=== PATIENT | male | born 1940 | race Caucasian/White ===

== ENCOUNTER 2019-09-22 16:23 | Inpatient (IN) | payer OTHER ==
[2019-09-22 17:33] LABS: Urine Blood 3+ (NEG); Urine Glucose NEGATIVE (NEG); Urine Protein NEGATIVE (NEG); Urine Specific Gravity 1.015 (1.005-1.030); Urine pH 5.5 (5.0-7.0)
[2019-09-22] MEDS ORDERED: NA CHLORIDE 0.9% 500 ML ONE (17:47)
[2019-09-22 17:58] LABS: Basophils % 0.4 % (0-1.3); Lymphocytes % 9.3 % (15.3-44.8); MPV 8.3 fL (7.6-11.3); RBC Red Blood Cell Count 5.61 M/uL (4.33-5.43)
[2019-09-22 18:07] LABS: Potassium 4.2 mmol/L (3.5-5.1)
--- NOTE | 2019-09-22 19:11 | RAD REPORT ---
EXAM DESCRIPTION: CT - Abdomen Pelvis Wo Contrast - 09/22/2019 6:21 pm CLINICAL HISTORY: ABDOMINAL DISTENTION COMPARISON: CT ABD PELVIS W CONTRAST dated 06/20/2015; CT ABD PELVIS W CONTRAST dated 01/04/2013 TECHNIQUE: Axial [address] imaging of the abdomen and pelvis was performed without IV contrast. No IV contrast was given because of allergy, abnormal renal function, patient refusal or physician re quest. No oral contrast administered. All CT scans are performed using dose optimization technique as appropriate and may include automated exposure control or mA/KV adjustment according to patient size. FINDINGS: Scarring or atelectasis at each base. No pericardial thickening or effusion. The liver, spleen and pancreas show no suspicious findings on non-contrast imaging. Renal parenchymal calcifications are present. Cholecystectomy clips are present. Biliary tree is not dilated. Bilateral moderate severity hydronephrosis of the pelvis and calices noted down to the UVJ level. No obstructing calculi. Bladder wall is only partially filled. Bladder wall thickening is present. Any e tiology for the hydronephrosis is not definitive. This may be from a urethral stricture. The bladder was not dilated but patient may have undergone a catheterization. No indwelling catheter. Bilateral p erinephric stranding is present. No significant adrenal finding. Isodense renal masses and pyeloneph ritis cannot be excluded in the absence of IV contrast. No dilated bowel loops or bowel wall thickening. A few prominent small bowel loops are present. This is nonspecific. This could be enteritis or mild ileus. No free air or pneumatosis. No hernia, mass or bulky lymphadenopathy. No suspicious bony findings. IMPRESSION: Moderate severity bilateral hydronephrosis and hydroureter down to the UVJ level. No obs tructing calculi seen. Patient may have a urethral stricture. Prostate gland is lobulated. Urinary bladder wall is thickened and slightly irregular. This may be secondary to chronic outlet obs truction. Bladder volume is relatively low at this time and patient may have undergone catheterizatio n. No obstruction, free air or surgically emergent finding. Prominent small bowel loops could indicate n onspecific enteritis or mild ileus. Full assessment is limited is the absence of IV contrast.
--- NOTE | 2019-09-22 20:39 | ER ---
Nurse's Notes [facility] Name: Kenji Hunt Age: 79 yrs Sex: Male : 1940 Arrival Date: 09/22/2019 Time: 16:26 Bed 16 Private MD: Diagnosis: Acute kidney failure Presentation: 09/21 16:31 Chief complaint: Patient states: Constipation x 3 days and urinary frequency x 1 week. ss Coronavirus screen: The patient has NOT traveled to a country currently being monitored by the [facility] within the last 14 days. Proceed with normal triage procedures. Ebola Screen: Patient denies exposure to infectious person. Patient denies travel to an Ebola-affected area in the 21 days before illness onset. Initial Sepsis Screen: Does the patient meet any 2 criteria? No. Patient's initial sepsis screen is negative. Does the patient have a suspected source of infection? No. Patient's initial sepsis screen is negative. Risk Assessment: Do you want to hurt yourself or someone else? Patient reports no desire to harm self or others. 16:31 Method Of Arrival: Ambulatory ss 16:31 Acuity: OZZIE 3 ss Historical: - Allergies: 16:35 No Known Allergies; ss - PSHx: 22:27 Cholecystectomy; aa1 - Immunization history:: Adult Immunizations up to date. - Social history:: Smoking status: Patient denies any tobacco usage or history of. Screenin:20 Abuse screen: Denies threats or abuse. Denies injuries from another. Nutritional ca1 screening: No deficits noted. Tuberculosis screening: No symptoms or risk factors identified. Fall Risk IV access (20 points). Assessment: 17:20 General: Appears in no apparent distress. comfortable, Behavior is calm, cooperative, ca1 appropriate for age. Pain: Complains of pain in suprapubic area Pain does not radiate. Pain currently is 6 out of 10 on a pain scale. Pain began a week ago. Neuro: Level of Consciousness is awake, alert, obeys commands, Oriented to person, place, time, situation, Appropriate for age. Cardiovascular: Heart tones S1 S2 present Capillary refill < 3 seconds Patient's skin is warm and dry. Respiratory: Airway is patent Respiratory effort is even, unlabored, Respiratory pattern is regular, symmetrical, Breath sounds are clear bilaterally. GI: Abdomen is round distended, Bowel sounds present X 4 quads. Abd is soft and non tender X 4 quads. : Urine is clear. EENT: No signs and/or symptoms were reported regarding the EENT system. Derm: Skin is intact, is healthy with good turgor, Skin is pink, warm \T\ dry. Musculoskeletal: Circulation, motion, and sensation intact. Capillary refill < 3 seconds. 17:42 Reassessment: Bladder scanned 695ml. Notified provider. ca1 18:28 Reassessment: Patient appears in no apparent distress at this time. Patient and/or ca1 family updated on plan of care and expected duration. Pain level reassessed. Patient is alert, oriented x 3, equal unlabored respirations, skin warm/dry/pink. 19:50 Reassessment: Patient appears in no apparent distress at this time. Patient and/or aa1 family updated on plan of care and expected duration. Pain level reassessed. Patient is alert, oriented x 3, equal unlabored respirations, skin warm/dry/pink. Provider at bedside for reassessment. 21:00 Reassessment: Patient appears in no apparent distress at this time. Patient and/or aa1 family updated on plan of care and expected duration. Pain level reassessed. Patient is alert, oriented x 3, equal unlabored respirations, skin warm/dry/pink. Awaiting bed assignment. 22:00 Reassessment: Patient appears in no apparent distress at this time. Patient and/or aa1 family updated on plan of care and expected duration. Pain level reassessed. Patient is alert, oriented x 3, equal unlabored respirations, skin warm/dry/pink. Attempted to call report; nurse will calll back. 22:28 Reassessment: Patient appears in no apparent distress at this time. Patient is alert, aa1 oriented x 3, equal unlabored respirations, skin warm/dry/pink. Report given to SASHA Johnston on 2nd floor. 22:53 Reassessment: Patient appears in no apparent distress at this time. Patient is alert, aa1 oriented x 3, equal unlabored respirations, skin warm/dry/pink. Pt admitted to room 210 at this time. Vital Signs: 16:31 BP 181 / 82; Pulse 84; Resp 17; Temp 98.8(TE); Pulse Ox 98% on R/A; Weight 81.65 kg; ss Height 5 ft. 8 in. (172.72 cm); 19:50 BP 142 / 69; Pulse 84; Resp 18; Pulse Ox 97% on R/A; Pain 0/10; aa1 21:45 BP 137 / 56; Pulse 76; Resp 18; Temp 98.6; Pulse Ox 99% on R/A; Pain 0/10; aa1 16:31 Body Mass Index 27.37 (81.65 kg, 172.72 cm) ED Course: 16:26 Patient arrived in ED. mr 16:35 Triage completed. ss 16:35 Arm band placed on left wrist. ss 17:07 Hammad Ramirez FNP-C is PHCP. la1 17:07 Paco Dobbins MD is Attending Physician. la1 17:10 Maryjo Abreu, SASHA is Primary Nurse. ca1 17:20 Patient has correct armband on for positive identification. Bed in low position. Call ca1 light in reach. Side rails up X 1. Pulse ox on. NIBP on. Warm blanket given. 17:42 Initial lab(s) drawn, by me, sent to lab. Inserted saline lock: 20 gauge in left ca1 antecubital area, using aseptic technique. Blood collected. 17:50 No provider procedures requiring assistance completed. Straight cath inserted, using ca1 sterile technique, 16 Fr. Specimen obtained. Returned clear yellow urine. Patient tolerated. 18:07 Radiology exam delayed due to lab results not completed at this time. (BUN/Creatinine). nj 18:21 Abdomen In Process Unspecified. EDMS 18:58 Woody cath inserted, using sterile technique, 16 Fr., by me, balloon inflated, to ca1 gravity drainage, returned emani urine. Patient tolerated well. 20:37 Steven Mccormick MD is Hospitalizing Provider. la1 22:29 Patient admitted, IV remains in place. aa1 Administered Medications: 17:43 Drug: NS 0.9% 500 ml Route: IV; Rate: bolus; Site: left antecubital; ca1 19:00 Follow up: IV Status: Completed infusion; IV Intake: 500ml aa1 Intake: 19:00 IV: 500ml; Total: 500ml. aa1 Output: 18:28 Urine: 800ml (Woody); Total: 800ml. ca1 20:42 Urine: 1500ml (Woody); Total: 2300ml. aa1 22:58 Urine: 1450ml (Woody); Total: 3750ml. aa1 Outcome: 20:38 Decision to Hospitalize by Provider. la1 22:53 Admitted to Med/surg accompanied by tech, via wheelchair, room 210, with chart, Report aa1 called to SASHA Johnston 22:53 Condition: stable 22:53 Discharge instructions given to patient, family, Instructed on the need for admit, Demonstrated understanding of instructions. 23:02 Patient left the ED. aa1 Signatures: Dispatcher [employer] EDMS Gwendolyn Castañeda RN RN aa1 MarAnjana nevarez mr WongLinda RN RN ss Hammad Ramirez, MANAGER DIVISION-C MANAGER DIVISION-Cla1 Logan Heredia Cheryl RN RN ca1 Corrections: (The following items were deleted from the chart) 22:29 22:28 Reassessment: Patient appears in no apparent distress at this time. Patient aa1 and/or family updated on plan of care and expected duration. Pain level reassessed. Patient is alert, oriented x 3, equal unlabored respirations, skin warm/dry/pink. Attempted to call report; nurse will calll back aa1
--- NOTE | 2019-09-22 20:39 | EDPHYS ---
Physician Documentation [facility] Name: Kenji Hunt Age: 79 yrs Sex: Male : 1940 Arrival Date: 09/22/2019 Time: 16:26 Bed 16 Private MD: ED Physician Paco Dobbins HPI: 09/21 20:39 This 79 yrs old Male presents to ER via Ambulatory with complaints of Urinary la1 Problem. 20:39 The patient presents with abdominal distention. Onset: The symptoms/episode la1 began/occurred 1 week(s) ago. The symptoms do not radiate. Associated signs and symptoms: none. The symptoms are described as achy. Modifying factors: The symptoms are alleviated by nothing, the symptoms are aggravated by nothing. Severity of pain: At its worst the pain was moderate. pt reports urinary frequency with small amounts for the last week. Historical: - Allergies: 16:35 No Known Allergies; ss - PSHx: 22:27 Cholecystectomy; aa1 - Immunization history:: Adult Immunizations up to date. - Social history:: Smoking status: Patient denies any tobacco usage or history of. ROS: 20:40 Constitutional: Negative for fever, chills, and weight loss, Eyes: Negative for injury, la1 pain, redness, and discharge, ENT: Negative for injury, pain, and discharge, Neck: Negative for injury, pain, and swelling, Cardiovascular: Negative for chest pain, palpitations, and edema, Respiratory: Negative for shortness of breath, cough, wheezing, and pleuritic chest pain, Back: Negative for injury and pain, MS/Extremity: Negative for injury and deformity. 20:40 Skin: Negative for injury, rash, and discoloration, Neuro: Negative for headache, weakness, numbness, tingling, and seizure. 20:40 Abdomen/GI: Positive for abdominal pain. 20:40 : Positive for urinary frequency, small amounts, hematuria. Exam: 20:41 Constitutional: This is a well developed, well nourished patient who is awake, alert, la1 and in no acute distress. Head/Face: Normocephalic, atraumatic. Eyes: Pupils equal round and reactive to light, extra-ocular motions intact. ENT: Mucous membranes moist. Neck: Trachea midline, Chest/axilla: Normal chest wall appearance and motion. Nontender with no deformity. No lesions are appreciated. Cardiovascular: Regular rate and rhythm with a normal S1 and S2. No gallops, murmurs, or rubs. Normal PMI, no JVD. No pulse deficits. Respiratory: Lungs have equal breath sounds bilaterally, Abdomen/GI: Soft, non-tender, with normal bowel sounds. mild distension. No guarding or rebound. No evidence of tenderness throughout. Skin: Warm, dry with normal turgor. Normal color with no rashes, no lesions, and no evidence of cellulitis. MS/ Extremity: Pulses equal, no cyanosis. Neurovascular intact. Full, normal range of motion. Vital Signs: 16:31 BP 181 / 82; Pulse 84; Resp 17; Temp 98.8(TE); Pulse Ox 98% on R/A; Weight 81.65 kg; ss Height 5 ft. 8 in. (172.72 cm); 19:50 BP 142 / 69; Pulse 84; Resp 18; Pulse Ox 97% on R/A; Pain 0/10; aa1 21:45 BP 137 / 56; Pulse 76; Resp 18; Temp 98.6; Pulse Ox 99% on R/A; Pain 0/10; aa1 16:31 Body Mass Index 27.37 (81.65 kg, 172.72 cm) ss MDM: 17:07 Patient medically screened. la1 20:42 Data reviewed: vital signs, nurses notes, radiologic studies, I have discussed the la1 patient's presentation/case with the attending Emergency Department Physician; and as a result, I will admit patient. Data interpreted: Pulse oximetry: on room air is 97 %. Interpretation: normal. Counseling: I had a detailed discussion with the patient and/or guardian regarding: the historical points, exam findings, and any diagnostic results supporting the discharge/admit diagnosis, lab results, radiology results, the need for further work-up and treatment in the hospital. Response to treatment: the patient's symptoms have markedly improved after treatment. 09/21 17:16 Order name: CBC with Diff; Complete Time: 18:14 la1 09/21 17:16 Order name: BMP; Complete Time: 18:14 la1 09/21 17:28 Order name: Urine Dipstick--Ancillary (enter results); Complete Time: 18:14 ar5 09/21 18:14 Order name: Abdomen ; Complete Time: 19:31 EDOH 09/21 17:16 Order name: Urine Dipstick-Ancillary (obtain specimen); Complete [facility]: [facility]:27 [facility] 09/[facility] 17:16 Order name: IV; Complete Time: 18:04 ia1 09/21 17:16 Order name: Bladder Scanner; Complete Time: 18:04 [facility] 09/[facility] 18:13 Order name: Cath; Complete Time: 18:57 [facility] 09/21 21:34 Order name: CONS Pharmacy Consult EDOH 09/21 21:34 Order name: CONS Physician Consult EDOH 09/21 21:34 Order name: Consistent Carb (ADA) 1800 Ru EDMS Administered Medications: 17:43 Drug: NS 0.9% 500 ml Route: IV; Rate: bolus; Site: left antecubital; ca1 19:00 Follow up: IV Status: Completed infusion; IV Intake: 500ml aa1 Disposition: 09/22 07:02 Co-signature as Attending Physician, Paco Dobbins MD I agree with the assessment and kdr plan of care. Disposition: 09/22/19 20:38 Hospitalization ordered by Steven Mccormick for Inpatient Admission. Preliminary diagnosis is Acute kidney failure. - Bed requested for Telemetry/MedSurg (Inpatient). - Status is Inpatient Admission. aa1 - Condition is Stable. - Problem is new. - Symptoms have improved. Signatures: Dispatcher [employer] [facility] Gwendolyn Castañeda RN RN aa1 Paco Dobbins MD MD [facility] Linda Wong RN RN ss Hammad Ramirez, OUTPATIENT COORDINATOR-C OUTPATIENT COORDINATOR-Cla1 Fernanda Reed RN RN cg Maryjo Abreu RN RN ca1 Corrections: (The following items were deleted from the chart) 09/21 18:14 17:48 Abdomen Pelvis W Con+CT.RAD.BRZ ordered. [facility] EDOH 21:53 20:38 Hospitalization Ordered by Steven Mccormick MD for Inpatient Admission. Preliminary cg diagnosis is Acute kidney failure. Bed requested for Telemetry/MedSurg (Inpatient). Status is Inpatient Admission. Condition is Stable. Problem is new. Symptoms have improved. la1 23:02 21:53 09/22/2019 20:38 Hospitalization Ordered by Steven Mccormick MD for Inpatient aa1 Admission. Preliminary diagnosis is Acute kidney failure. Bed requested for Telemetry/MedSurg (Inpatient). Status is Inpatient Admission. Condition is Stable. Problem is new. Symptoms have improved. cg
[2019-09-22] MEDS ORDERED: ONDANSETRON 4 MG/2 ML VIAL IV PRN (21:26)
[2019-09-22] MEDS ORDERED: MORPHINE 2 MG/ML SYR IV PRN (21:26)
[2019-09-22] MEDS ORDERED: HYDRALAZINE HCL 20 MG/ML VIAL IV PRN (21:31)
[2019-09-22] MEDS ORDERED: NA CHLORIDE 0.9% 1,000 ML IV SCH (22:00)
--- NOTE | 2019-09-22 22:59 | HP ---
Date of Admission: 09/22/2019 Presenting Complaint: Inability to void. 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 The patient has described intermittent terminal dribbling with few drops while attempting to void. On arrival in the ED, he was noted with elevated blood pressure with syst olic in the 180s. He had a CT scan done and he had a Woody placed with over 800 mL urine return. Th e CT scan show evidence of bilateral hydronephrosis with obstructive uropathy. His creatinine is not ed elevated at 4.55. The patient is admitted for further care. The patient denies any nausea or vom iting, but admit to loss of appetite. He feels more thirsty now. He denies any history of kidney in jury in the past. He has never seen a urologist before. Past Medical History: Significant for hypertension, diabetes mellitus, hyperlipidemia, BPH. Allergies: NO KNOWN DRUG ALLERGY. Past Surgical History: None. Family History: Noncontributory in this 79-year-old male. Home Medications: See full medication list by staff. Review of Systems: All systems reviewed x14 were negative except patient admits to alternating diarrhea and constipation . He states he has not had the bowel movement for the last 3 days. The patient is also hard of hear ing. Physical Examination: CURRENT VITALS: Blood pressure of 131/83, pulse of 82, respiratory rate of 18, O2 saturation 99 on r oom air, weight 81 kg, temperature 98.8. General: Overweight elderly male. HEENT: Head is atraumatic, normocephalic. Pupils equal, reactive to light. Hard of hearing. Neck: No JVD. No carotid bruit. Dry oral mucosa. Respiratory: Good air entry. No crepitation. Cardiovascular: S1, S2. Rate and rhythm regular. GI: Abdomen full, soft. Bowel sounds positive. Mild suprapubic tenderness, but no fullness. No CV A tenderness. : Woody catheter in-situ with concentrated emani-color urine. Musculoskeletal: No pedal edema. No calf tenderness. Integumentary: Skin with dry scaly patches over the posterior surface of the right forearm. Some sc avni patches on the left arm also noted. Neuro: Patient is alert, oriented. Cranial nerves 2 through 12 grossly intact. Laboratory Data: WBC 11, hemoglobin 13, neutrophils 83, no bands. Platelet 195. Sodium 141, potass ium 4.2, bicarb 26, BUN 46, creatinine 4.5, glucose 181, calcium 8.7. Urinalysis, 3+ blood, but nega tive leukocyte esterase. CT of abdomen and pelvis shows bilateral moderate severity hydronephrosis o f the pelvis and calices noted down to the UVJ level. No obstructing calculi. Bladder was only part ially filled, Bladder wall thickening is present. Any etiology of the hydronephrosis is not definite . This maybe from a ureteral stricture. Bilateral perinephric stranding is present. Prostrate glan d is lobulated. Impression: 1.Acute renal failure. 2.Obstructive uropathy. 3.Presumed urethral stricture. 4.Hypertension. 5.Diabetes mellitus with hyperglycemia. Plan: We will admit patient to observation. We will manage patient for the following. 1.Acute renal failure, likely due to obstructive uropathy. Continue Woody. We will start gentle IV fluid. Monitor, repeat creatinine in a.m. No need for further lab work at this time. No need for further workup at this time until hydronephrosis is resolved. We will follow creatinine trend. If t rending down in the morning, that is an assessment that Woody is draining the hydronephrosis. The pa tient will need Urology evaluation as outpatient if not able to get while inpatient. 2.Hypertension. Continue home regimen. Obtain home medications, IV hydralazine p.r.n. 3.Diabetes mellitus. Start insulin sliding scale for now. 4.Deep venous thrombosis prophylaxis. Subcutaneous heparin. 5.Advanced directive. Patient is a full code. Total time spent in review of record, discussion with the patient and evaluation greater than 60 melecio robyn. The patient's family at bedside discussed with. EO/MODL Voice ID: [id number]
[2019-09-22 23:21] VITALS: BMI 27.6
[2019-09-23 06:47] LABS: Absolute Lymphocytes (CBC) 1.7 K/uL (0.7-4.9); Basophils % 0.4 % (0-1.3); Hematocrit 40.1 % (39.6-49.0); Lymphocytes % 20.5 % (15.3-44.8); RBC Red Blood Cell Count 5.53 M/uL (4.33-5.43)
[2019-09-23 07:02] LABS: Albumin 2.9 g/dL (3.4-5.0); Bilirubin Total 0.9 mg/dL (0.2-1.0); Potassium 3.6 mmol/L (3.5-5.1); Protein, Total 6.8 g/dL (6.4-8.2)
[2019-09-23] MEDS: INSULIN -REGULAR HUMAN 50 UNIT/0.5 ML ML SQ SCH ×4 (07:30→21:46)
[2019-09-23] MEDS ORDERED: CEFTRIAXONE 1 GM/NS 50 ML 1 GM/50 ML BAG IV SCH (09:00)
[2019-09-23] MEDS ORDERED: HEPARIN 5000 UNIT/ML 1 ML VIAL SQ SCH (09:00)
[2019-09-23] MEDS: CEFTRIAXONE/SWI 1gm 1 GM/10 ML SYR IV SCH (09:33)
[2019-09-23] MEDS: FAMOTIDINE 20 MG TAB PO SCH (09:33)
--- NOTE | 2019-09-23 10:45 | P.CNS ---
Date of Consult: 09/23/19 Reason for Consult: LENY Chief Complaint: unable to urinate History of Present Illness: HPI An 79-year-old male with the past medical history of hypertension, diabetes mellitus, hyperlipidemia, and CVA and BPH on flomax pt presented for being unable to urinate pt have Hx of DM , was on metformin , whic was stopped due to elevated RFT , as per daughter after that his Cr improved Pt had nocturia with low UO for years and was on flomax, since Thursday pt noticed low UO , and yesterday his had almost no UO denied chest pain, palpitation, nausea, vomiting , diarrhea or hematuria in ER Cr 4.5, CT with B/l [place] Past Medical History: as in HPI Allergies: NO KNOWN DRUG ALLERGY. Past Surgical History: None. Family History: Noncontributory in this 79-year-old male. Home Medications: See full medication list by staff. Review of Systems: as in HPI general: AAOX3, NAD , obese Neck; Supple, No elevated JVD hear: RRR, normal S1,2 no murmur or rub Chest: CTAB, no rlaes or wheezes Abdomen: Soft , Nt , burgess with hematuria Extremities No edema or ulcer LENY due to obstructive uropathy improving will switch fluid to 1/2 NS renal dose meds HTN controlled DM on SSI Obsurtuctive uropathy improved on burgess hematuria likely traumatic bladder irrigation heparin on hold Allergies No Known Allergies Allergy (Verified 09/17/15 08:10) Home Medications: Aspirin Enteric Coated [ASPIRIN 81 MG EC*] 81 mg PO DAILY 01/04/13 Simvastatin [Zocor*] 20 mg PO BEDTIME 01/04/13 Thyroid Tab [[place] Thyroid*] 60 mg PO DAILY 01/04/13 levETIRAcetam [Keppra*] 500 mg PO BID 01/04/13 Metformin HCl [Glucophage] 1,000 mg PO BID 06/21/15 Metoprolol Tartrate [Lopressor*] 50 mg PO BID #60 tab 06/25/15 - Past Medical/Surgical History Diabetic: Yes -: diabetes -: HTN -: Thyroid -: cardiac ablation - Social History Smoking Status: Never smoker Alcohol use: No CD- Drugs: No Caffeine use: Yes Place of Residence: Home Physical Examination Temp Pulse Resp BP Pulse Ox 98.4 F 83 18 132/72 97 03/06/20 04:00 09/23/19 04:00 09/23/19 04:00 09/23/19 04:00 09/23/19 04:00 Laboratory Data (last 24 hrs) 09/22/19 17:38: Sodium 141, Potassium 4.2, BUN 46 H, Creatinine 4.55 H, Glucose 181 H 09/22/19 17:38: WBC 11.0 H, Hgb 13.1 L, Hct 41.0, Plt Count 195
[2019-09-23] MEDS ORDERED: NACL 0.9% IRR SOLN 2,000 ML IRR ONE (11:45)
[2019-09-23] MEDS: NACHLORIDE 0.45% 1,000 ML IV SCH (11:49)
[2019-09-23] MEDS: SODIUM CHL 0.9% IRR SOLN 2000 ML IRR SCH (12:45)
--- NOTE | 2019-09-23 19:36 | PN ---
Date of Progress Note: 09/23/2019 Subjective: Patient seen and examined. Chart reviewed and case discussed with RN and Dr. Coombs. Patient found to have hematuria and will be started on CBI. Daughter at the bedside. Treatment plan explained. All questions answered. Medications: List reviewed. Code Status: Full. Physical Examination: Vital Signs: Temperature 97.9, heart rate 70, blood pressure 147/70, respirations 19, O2 of 97% on room air. General: Awake, alert, oriented x3. Elderly male, in some mild distress. Slightly ill-appearing. CV: S1, S2. Regular rate and rhythm. Peripheral pulses present. Respiratory: Moving air well bilaterally. No wheezing or stridor. No use of accessory muscles. Gastrointestinal: Abdomen is soft, nontender, nondistended. Positive bowel sounds. Extremities: No clubbing, cyanosis, or edema. Neurologic: Cranial nerves 2 through 12 intact grossly. No focal neurological deficit. Speech is normal. Laboratory Data: Sodium 145, potassium 3.6, chloride 111, CO2 of 29, BUN 32, creatinine 2.57, glucose 97, calcium 8.3. WBC 8.4, hemoglobin and hematocrit 12.8 and 40.1, platelets 189. Assessment And Plan: An 79-year-old male with: 1. Acute kidney injury secondary to obstructive uropathy. We will continue with Burgess catheter and will need to start continuous bladder irrigation due to hematuria. 2. Hematuria, likely secondary to above. Start on continuous bladder irrigation. No Urology available. We will attempt transfer to [facility] for Urology. 3. Essential hypertension, stable. Continue home medications. 4. Diabetes mellitus type 2. Continue sliding scale insulin and monitor blood glucose levels. 5. Presumed urethral stricture. 6. BPH. Continue Flomax. 7. Hyperlipidemia. Continue statin. 8. Deep venous thrombosis prophylaxis, SCDs. No chemical anticoagulation due to hematuria. 9. Disposition. Attempt transfer to [facility]. We will continue to monitor kidney function, which is significantly improving; however, still elevated. Appreciate Nephrology input. ADDENDUM [facility] declined transfer at this time as urologist does not feel that this is an emergent transfer. He recommends slowing down the CBI and if no recurrence of hematuria to DC home w burgess catheter with out pt urology f/up. SA/MODL Voice ID: [id number] Report ID: [id number] SUSANNAH
[2019-09-23] MEDS: ATORVASTATIN 10 MG TAB PO SCH (20:28)
[2019-09-23] MEDS: METOPROLOL TAR 50 MG TAB PO SCH (20:29)
[2019-09-23] MEDS ORDERED: HOME MED 1 EA UNK (Simvastatin [Zocor*] 20 MG) PO SCH (21:00)
[2019-09-24] MEDS: NACHLORIDE 0.45% 1,000 ML IV SCH ×2 (01:17→14:21)
[2019-09-24] MEDS ORDERED: THYROID 30 MG TAB PO SCH (06:30)
[2019-09-24] MEDS: INSULIN -REGULAR HUMAN 50 UNIT/0.5 ML ML SQ SCH ×4 (07:30→21:10)
[2019-09-24] MEDS: METOPROLOL TAR 50 MG TAB PO SCH ×2 (08:13→21:10)
[2019-09-24] MEDS: FAMOTIDINE 20 MG TAB PO SCH (08:13)
[2019-09-24] MEDS: CEFTRIAXONE/SWI 1gm 1 GM/10 ML SYR IV SCH (08:13)
[2019-09-24 08:20] VITALS: O2SAT 100
[2019-09-24] MEDS ORDERED: INSULIN DEGLUDEC 35 UNIT SQ SCH (09:00)
[2019-09-24] MEDS ORDERED: FINASTERIDE 5 MG TAB PO SCH (09:00)
[2019-09-24] MEDS ORDERED: LOSARTAN POTASSIUM 50 MG TABLET PO SCH (09:00)
[2019-09-24] MEDS ORDERED: TAMSULOSIN 0.4 MG SR CAP PO SCH (09:00)
[2019-09-24 10:05] LABS: Absolute Lymphocytes (CBC) 1.5 K/uL (0.7-4.9); Basophils % 0.7 % (0-1.3); Hematocrit 41.6 % (39.6-49.0); Lymphocytes % 19.9 % (15.3-44.8); MPV 8.2 fL (7.6-11.3); RBC Red Blood Cell Count 5.78 M/uL (4.33-5.43)
[2019-09-24 10:16] LABS: Potassium 3.6 mmol/L (3.5-5.1)
[2019-09-24] MEDS: NACL 0.9% IRR SOLN 2,000 ML IRR ONE ×2 (12:05→12:10)
[2019-09-24] MEDS: SODIUM CHL 0.9% IRR SOLN 2000 ML IRR SCH (12:48)
[2019-09-24] MEDS: HYDRALAZINE HCL 25 MG TABLET PO SCH ×2 (14:21→21:10)
[2019-09-24 16:04] LABS: Urine Protein/Creatinine Ratio 8.47 ratio (<0.15)
--- NOTE | 2019-09-24 16:27 | PN ---
Date of Progress Note: 09/24/2019 Subjective: Patient seen and examined. Chart reviewed and case discussed with RN and Dr. Hampton. Did speak with transfer center at [facility], Dr. Paiz, Urology, did not feel that this was an emergent transfer as hemoglobin is stable. He states bleeding is expected and he does not feel that this is an emergent transfer. Medications: List reviewed. Physical Examination: Vital Signs: Temperature 97.1, heart rate 66, blood pressure 175/80, respirations 18, O2 100% on room air. General: Awake, alert, oriented x3. Elderly male, not in any acute distress. CV: S1, S2. Regular rate and rhythm. Peripheral pulses present. Respiratory: Moving air well bilaterally. No wheezing or stridor. Gastrointestinal: Abdomen is soft, nontender, nondistended. Positive bowel sounds. Extremities: No clubbing, cyanosis, edema. Neurologic: Nonfocal. Laboratory Data: Sodium 142, potassium 3.6, chloride 108, CO2 of 27, BUN 23, creatinine 1.61, glucose 170, calcium 8.3. WBC 7.7, H and H 13.3 and 41.6, platelets 200. Assessment: An 79-year-old male with; 1. Acute kidney injury secondary to obstructive uropathy, improving. Kidney function is trending down. Appreciate Nephrology input. Continue IV fluids. 2. Gross hematuria secondary to urinary obstruction. We will restart bladder irrigation in [facility] declining transfer stating this is not emergent. We will try [facility]. Patient's family lives in [place]. 3. Obstructive uropathy, improved with Woody placement, likely secondary to BPH. Patient does need cystoscopy to rule out a form of bladder malignancy due to the hematuria. 4. Essential hypertension, not well controlled. We will add p.r.n. hydralazine. 5. Diabetes mellitus type 2 with hyperglycemia, non-insulin requiring. Continue sliding scale insulin and monitor blood glucose levels. 6. Presumed urethral stricture. Urology followup. 7. BPH. Continue Flomax. We will add finasteride. 8. Mixed hyperlipidemia. Continue statin. 9. Deep venous thrombosis prophylaxis, SCDs. No chemical anticoagulation due to hematuria. Plan: Transfer to [facility] once accepted. /MANOHAR Voice ID: [id number] Report ID: [id number] MTDJose J
[2019-09-24] MEDS ORDERED: carvediloL 6.25 MG TAB PO SCH (21:00)
[2019-09-24] MEDS: ATORVASTATIN 10 MG TAB PO SCH (21:10)
[2019-09-24 21:16] VITALS: BP 136/62; TEMP 98.7
--- NOTE | 2019-09-25 17:50 | PN ---
Date of Progress Note: 09/24/2019 Subjective: Patient was admitted with acute kidney injury, found to have obstructive uropathy. Fole y was inserted. Patient is still having hematuria. Physical Examination: Vital Signs: Blood pressure of 143/63, pulse of 73. Chest: Clear to auscultation. Heart: S1, S2 regular. Abdomen: Soft, nontender. Extremities: Trace edema. Laboratory Data: H and H 13.3/41.6. Sodium 142, potassium 3.6, bicarb 26, BUN 23, creatinine 1.6, c alcium 8.3. Assessment And Plan: 1.Acute kidney injury secondary to obstructive uropathy. Creatinine trending down. We will continu e hydration. Continue bladder irrigation. Patient is going to need Urology evaluation with IV contr ast and the patient told the facility for urology evaluation. 2.Hypertension. Keep holding blood pressure medication for the time being. Continue hydration, pat ient's ILVE inhibitor and diuresis. 3.Prostate hypertrophy with obstructive uropathy. Start the patient on Flomax. We will follow up w ith the primary. Waiting for transfer to another facility. ZANE Voice ID: [id number] Report ID: [id number]
--- NOTE | 2019-09-26 08:51 | PN ---
Subjective: Patient was admitted with acute kidney injury secondary to obstructive uropathy developed heamturea started on bladder irrigation which start to clear up Objective: Vital Signs: Blood pressure 126/62, pulse is 71. Chest: Clear to auscultation. Heart: S1, S2. Regular. Abdomen: Soft, nontender. Extremities: No edema. lab Na 134, Cr 1.5, Bun 25 Assessment And Plan: 1. acute kidney injury secondary to obstructive uropathy _ continue hydration , continue bladder irrigation. 2. Hypertension, controlled, optimal. Continue current medication. 3. Obstructive uropathy, we will follow up with Urology. ZANE Voice ID: [id number] Report ID: [id number] SUSANNAH
--- NOTE | 2019-09-27 05:00 | DS ---
Date of Discharge: 09/24/2019 Consultants: Dr. Hampton with Nephrology. Admitting Diagnoses: 1.Urinary obstruction. 2.Acute kidney injury. 3.Bilateral hydronephrosis. 4.Presumed urethral stricture. 5.Essential hypertension. 6.Diabetes mellitus type 2 with hyperglycemia. Discharge Diagnoses: 1.Acute kidney injury secondary to obstructive uropathy, improving. 2.Gross hematuria. 3.Obstructive uropathy. 4.Bilateral hydronephrosis. 5.Essential hypertension, not well controlled. 6.Diabetes mellitus type 2 with hyperglycemia, [id number]. 7.Presumed urethral stricture. 8.Benign prostatic hypertrophy. 9.Mixed hyperlipidemia. Hospital Course: Patient is an 79-year-old male, came in with inability to void. Patient was found to have significant amount of urine in the bladder. Woody catheter was placed and had over 800 mL re turn. His CT scan showed evidence of bilateral hydronephrosis with obstructive uropathy. Creatinine was 4.55. Patient was started on IV fluids. Nephrology was consulted. There was no calyces noted to the UVJ level. No obstructing calculi. Possible urethral stricture was given in the CT scan. Agapito dunaway did have a lobulated prostate gland. He was started on Flomax. He started to have gross hemat uria, started on continuous bladder irrigation. No Urology was available. The patient's kidney func tion improved. He was then referred for transfer for [facility] for Urology, however, they decline d stating that this can be done as an outpatient, however with stopping CBI the patient re-bled. The refore, the patient was transferred to [facility] close to where his family lives in cluding his daughter for no Urology available. Patient was then discharged. Patient was then transf erred to [facility] in stable condition. Activity: As tolerated. Medications: As per medication reconciliation list. Followup: With attending physician at [facility]. Physical Examination: For physical exam findings please see progress note dictated on the day of discharge. /MANOHAR Voice ID: [id number] Report ID: [id number]
== END 2019-09-24 22:00 | disposition short-term general hospital (02) | DRG 694 ==
LOC: ER 16:23 → ERHOLD 21:27 → 2ND 22:31 → OBSVTOIN 09-23 10:51 → 4TH 09-23 20:38
PROVIDERS: ADMIT Internal Medicine; ATTEND Internal Medicine
DX: N13.1 Hydronephrosis with ureteral stricture, not elsewhere classified (principal); N13.8 Other obstructive and reflux uropathy; N17.9 Acute kidney failure, unspecified; R31.0 Gross hematuria; N40.1 Benign prostatic hyperplasia with lower urinary tract symptoms; I10 Essential (primary) hypertension; E11.65 Type 2 diabetes mellitus with hyperglycemia; E78.2 Mixed hyperlipidemia
CPT/HCPCS: 36415; 51702; 74176; 80048; 80053; 81003; 82570; 82947; 84156; 85025; 96360; 99285; G0378; J0696; J1644; J7030; J7040

== ENCOUNTER 2021-04-12 22:42 | Emergency (ER) | payer OTHER ==
--- NOTE | 2021-04-12 23:55 | ER ---
Nurse's Notes [facility] Name: Kenji Hunt Age: 81 yrs Sex: Male : 1940 Arrival Date: 04/12/2021 Time: 22:44 Bed 16 Private MD: Diagnosis: Burgess catheter malfunction Presentation: 04/12 22:47 Chief complaint: Patient states: that he is feels his bladder is full. He has had his lh3 catheter for about 2 years. Also he feels constipated and last bm was this evening was this evening. HX of stage 4 prostate cancer, recently started oral chemo. Coronavirus screen: Vaccine status: Patient reports receiving the 2nd dose of the covid vaccine. Date October 2020. Ebola Screen: No symptoms or risks identified at this time. Initial Sepsis Screen: Does the patient meet any 2 criteria? No. Patient's initial sepsis screen is negative. Does the patient have a suspected source of infection? No. Patient's initial sepsis screen is negative. Risk Assessment: Do you want to hurt yourself or someone else? Patient reports no desire to harm self or others. Onset of symptoms was April 12, 2021. 22:47 Method Of Arrival: Ambulatory 3 22:47 Acuity: OZZIE 3 lh3 Triage Assessment: 22:56 General: Appears uncomfortable, Behavior is calm, cooperative, appropriate for age. lh3 Pain: Complains of pain in suprapubic area. Historical: - Allergies: 22:52 No Known Allergies; lh3 - PMHx: 22:57 Cancer in situ of urinary bladder; History of urinary tract infection; lh3 - Immunization history:: Adult Immunizations up to date, Client reports receiving the 2nd dose of the Covid vaccine. - Social history:: Smoking status: Patient denies any tobacco usage or history of. Screenin/25 00:43 Abuse screen: Denies threats or abuse. Denies injuries from another. Nutritional sj1 screening: No deficits noted. Tuberculosis screening: No symptoms or risk factors identified. Fall Risk None identified. Assessment: 04/12 23:30 General: Appears uncomfortable, Behavior is calm, cooperative, appropriate for age. sj1 Neuro: No deficits noted. Cardiovascular: No deficits noted. Respiratory: No deficits noted. GI: No deficits noted. : Reports inability to void. EENT: No deficits noted. Derm: No deficits noted. Musculoskeletal: No deficits noted. 23:33 : Urine is cloudy, UOP 400cc with initial burgess placement. [facility] Vital Signs: 22:47 BP 186 / 70; Pulse 101; Resp 19; Temp 97.6; Pulse Ox 100% ; Weight 79.38 kg (R); Height [facility] 5 ft. 8 in. (172.72 cm) (R); 04/13 00:43 BP 113 / 76; Pulse 100; Resp 18; Temp 98; Pulse Ox 95% ; Pain 0/10; sj1 04/12 22:47 Body Mass Index 26.61 (79.38 kg, 172.72 cm) [facility] ED Course: 04/12 22:44 Patient arrived in ED. 22:52 Triage completed. [facility] 22:56 Vinod Cristina MD is Attending Physician. [facility] 22:56 Arm band placed on left wrist. [facility] 23:30 Patient has correct armband on for positive identification. Bed in low position. Call [facility] light in reach. Side rails up X 1. 23:30 No provider procedures requiring assistance completed. Burgess cath inserted, using [facility] sterile technique, 16 Fr., by co, balloon inflated, to gravity drainage, urine specimen collected. 23:54 Evgeny Sy MD is Referral Physician. [facility] 04/13 00:44 Patient did not have IV access during this emergency room visit. [facility] Administered Medications: No medications were administered Outcome: 04/12 23:54 Discharge ordered by . [facility] 04/13 00:43 Discharged to home [facility] Condition: stable Discharge instructions given to patient, family, Instructed on discharge instructions, follow up and referral plans. 00:44 Patient left the ED. [facility] Signatures: Vinod Cristina MD MD [facility] Willa Mccauley Keyla Aranda RN RN 3 Meryl Brown RN RN [facility]
--- NOTE | 2021-04-12 23:56 | EDPHYS ---
Physician Documentation [facility] Name: Kenji Hunt Age: 81 yrs Sex: Male : 1940 Arrival Date: 04/12/2021 Time: 22:44 Bed 16 Private MD: ED Physician Vinod Cristina HPI: 04/12 23:05 This 81 yrs old Male presents to ER via Ambulatory with complaints of Problem mh7 With Urinary Catheter. 23:05 The patient presents with a Ubrgess catheter problem, is not draining. Onset: The mh7 symptoms/episode began/occurred today. Modifying factors: The symptoms are alleviated by nothing, the symptoms are aggravated by nothing. Associated signs and symptoms: Pertinent positives: constipation, Pertinent negatives: diarrhea, fever, hematuria, nausea, vomiting. Severity of symptoms: At their worst the symptoms were moderate, earlier today, in the emergency department the symptoms are unchanged. The patient has experienced similar episodes in the past, several times. Historical: - Allergies: 22:52 No Known Allergies; lh3 - PMHx: 22:57 Cancer in situ of urinary bladder; History of urinary tract infection; lh3 - Immunization history:: Adult Immunizations up to date, Client reports receiving the 2nd dose of the Covid vaccine. - Social history:: Smoking status: Patient denies any tobacco usage or history of. ROS: 23:05 Constitutional: Negative for fever, chills, and weight loss, Eyes: Negative for injury, mh7 pain, redness, and discharge, ENT: Negative for injury, pain, and discharge, Neck: Negative for injury, pain, and swelling, Cardiovascular: Negative for chest pain, palpitations, and edema, Respiratory: Negative for shortness of breath, cough, wheezing, and pleuritic chest pain, Back: Negative for injury and pain, MS/Extremity: Negative for injury and deformity, Skin: Negative for injury, rash, and discoloration, Neuro: Negative for headache, weakness, numbness, tingling, and seizure, Psych: Negative for depression, anxiety, suicide ideation, homicidal ideation, and hallucinations, Allergy/Immunology: Negative for hives, rash, and allergies, Endocrine: Negative for neck swelling, polydipsia, polyuria, polyphagia, and marked weight changes, Hematologic/Lymphatic: Negative for swollen nodes, abnormal bleeding, and unusual bruising. Exam: 23:05 Constitutional: This is a well developed, well nourished patient who is awake, alert, mh7 and in no acute distress. Head/Face: Normocephalic, atraumatic. Eyes: Pupils equal round and reactive to light, extra-ocular motions intact. Lids and lashes normal. Conjunctiva and sclera are non-icteric and not injected. Cornea within normal limits. Periorbital areas with no swelling, redness, or edema. Neck: Trachea midline, no thyromegaly or masses palpated, and no cervical lymphadenopathy. Supple, full range of motion without nuchal rigidity, or vertebral point tenderness. No Meningismus. Chest/axilla: Normal chest wall appearance and motion. Nontender with no deformity. No lesions are appreciated. Cardiovascular: Regular rate and rhythm with a normal S1 and S2. No gallops, murmurs, or rubs. Normal PMI, no JVD. No pulse deficits. Respiratory: Lungs have equal breath sounds bilaterally, clear to auscultation and percussion. No rales, rhonchi or wheezes noted. No increased work of breathing, no retractions or nasal flaring. Back: No spinal tenderness. No costovertebral tenderness. Full range of motion. 23:05 Skin: Warm, dry with normal turgor. Normal color with no rashes, no lesions, and no evidence of cellulitis. MS/ Extremity: Pulses equal, no cyanosis. Neurovascular intact. Full, normal range of motion. Neuro: Awake and alert, GCS 15, oriented to person, place, time, and situation. Cranial nerves II-XII grossly intact. Motor strength 5/5 in all extremities. Sensory grossly intact. Cerebellar exam normal. Normal gait. Psych: Awake, alert, with orientation to person, place and time. Behavior, mood, and affect are within normal limits. 23:05 : CVA tenderness, is absent, Male external genitalia: normal, Bladder: distension, that is mild, Rectal exam: is refused by patient or guardian, a burgess is noted. Vital Signs: 22:47 BP 186 / 70; Pulse 101; Resp 19; Temp 97.6; Pulse Ox 100% ; Weight 79.38 kg (R); Height lh3 5 ft. 8 in. (172.72 cm) (R); 04/13 00:43 BP 113 / 76; Pulse 100; Resp 18; Temp 98; Pulse Ox 95% ; Pain 0/10; sj1 04/12 22:47 Body Mass Index 26.61 (79.38 kg, 172.72 cm) lh3 MDM: 04/12 23:50 Differential diagnosis: urinary retention, Burgess catheter problem, Constipation. Data [facility] reviewed: vital signs, nurses notes. Data interpreted: Pulse oximetry: on room air is 100 %. Interpretation: normal. Counseling: I had a detailed discussion with the patient and/or guardian regarding: the historical points, exam findings, and any diagnostic results supporting the discharge/admit diagnosis, the presence of at least one elevated blood pressure reading (>120/80) during this emergency department visit, the need for outpatient follow up, a urologist, to return to the emergency department if symptoms worsen or persist or if there are any questions or concerns that arise at home. Response to treatment: the patient's symptoms have resolved after treatment, the patient's blood pressure is in an acceptable range, mental status has returned to baseline, the patient no longer shows bradycardia, the patient is not short of breath, the patient is not tachycardic, the patient's pain is gone, the patient's temperature has normalized. Refusal of service: The patient/guardian displays adequate decision making capability and despite a detailed discussion of alternatives, benefits, risks, and consequences refuses: CT Scan, all lab tests, all X-rays. ED course: Feels better, no acute distress, vital signs stable, no focal neurological deficits. Burgess catheter replaced by nurse patient at output of 400 mL. Patient request to be discharged from the ED at this time. He will follow up with his urologist upon return to ER if worsening symptoms or other urgent concerns.. 23:54 Patient medically screened. [facility] 04/12 23:15 Order name: Burgess; Complete Time: 23:29 [facility] 04/12 23:50 Order name: Leg Bag [facility] Administered Medications: No medications were administered Disposition Summary: 04/12/21 23:54 Discharge Ordered Location: Home [facility] Problem: an ongoing problem [facility] Symptoms: have improved [facility] Condition: Stable [facility] Diagnosis - Burgess catheter malfunction [facility] Followup: [facility] - With: Private Physician - When: 1 - 2 days - Reason: Worsening of condition, Recheck today's complaints, Continuance of care, Re-evaluation by your physician Followup: [facility] - With: Evgeny Sy MD - When: 1 - 2 days - Reason: Worsening of condition, Recheck today's complaints Discharge Instructions: - Discharge Summary Sheet [facility] - Indwelling Urinary Catheter Care, Adult, [id number] [facility] Forms: - Medication Reconciliation Form [facility] - Thank You Letter [facility] - Antibiotic Education [facility] - Prescription Opioid Use [facility] Signatures: Vinod Cristina MD MD [facility] Keyla Aranda RN RN 3
[2021-04-13 00:51] VITALS: BP 113/76; TEMP 98; O2SAT 95
== END 2021-04-13 00:44 | disposition home or self-care (01) ==
LOC: ER 22:42
DX: T83.098A Other mechanical complication of other urinary catheter, initial encounter (principal); C67.9 Malignant neoplasm of bladder, unspecified
CPT/HCPCS: 51702; 99284

== ENCOUNTER 2022-03-13 07:43 | Emergency (ER) | payer OTHER ==
--- OUTSIDE RECORDS SUMMARY | 2022-03-13 07:46 | XMS REPORT | Continuity of Care Document ---
:1940 Author Organization [facility] t Address [address] [place] [address] Care Team Providers Name Role Phone Boris Wen MD Primary Care Physician Jess Munoz MD Attending Clinician JESS MUNOZ Attending Clinician Unavailable RESHMA DE LEON JR Attending Clinician Unavailable Pob, Adc Lab Main Attending Clinician Unavailable DEAN ROSS Attending Clinician Unavailable DEAN ROSS Admitting Clinician Unavailable Payers Payer Name Policy Type Policy Number Effective Date Expiration Date S ource Problems Condition Condition Condition Status Onset Resolution Last Treating Co mments Source Name Details Category Date Date Treatment Clinician Date 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 Added automatic ally from request for surgery [id number] Allergies, Adverse Reactions, Alerts Allergy Allergy Status Severity Reaction(s) Onset Inactive Treating Comm ents Source Name Type Date Date Clinician NO KNOWN Drug Active Univers ALLERGIE Class ity of S [place] [facility] Social History Social Habit Start Date Stop Date Quantity Comments Source Exposure to 2021-09-23 2021-10-23 Not sure University of SARS-CoV-2 00:00:00 15:26:00 [facility] (event) Branch Tobacco use and 2021-10-09 2021-10-09 Smokeless tobacco Un iversity of exposure 00:00:00 00:00:00 non-user [facility] Sex Ass[birth year] At [birth year] Universit y of 00:00:00 00:00:00 [facility] Smoking Status Start Date Stop Date Source Never smoked tobacco [facility] Medications Ordered Filled Start Stop Current Ordering Indication Dosage Frequency Signature Comments Components Source Medication Medication Date Date Medication? Clinician (SIG) Name Name aspirin 81 Yes 81mg Take 81 mg U nivers mg EC 3-25 by mouth. ity of tablet 13:11: [address] insulin Yes 35U inject 35 Unive rs degludec 3-25 Units ity of (TRESIBA 13:11: [place] FLE[place]CH 19 skin. Medical U-100) 100 Branch unit/mL (3 mL) InPn thyroid Yes [place] Univers (ARMOUR 3-25 Thyroid 60 ity of THYROID) 60 13:11: mg tablet [place] mg tablet 19 [facility] aspirin 81 Yes 81mg Take 81 mg U nivers mg EC 3-25 by mouth. ity of tablet 13:11: [address] insulin Yes 35U inject 35 Unive rs degludec 3-25 Units ity of (TRESIBA 13:11: [place] FLEXT[place]CH 19 skin. Medical U-100) 100 Branch unit/mL (3 mL) InPn thyroid Yes [place] Univers (ARMOUR 3-25 Thyroid 60 ity of THYROID) 60 13:11: mg tablet [place] mg tablet 19 Medical Branch doxycycline Yes [id number] Starting 2 Univers monohydrate 3-08 days ity of 100 mg 00:00: before [place] capsule 00 surgery Medical take 1 Branch pill BID mupirocin 2 Yes [id number] Apply to Univers % ointment 3-08 surgical ity o f 00:00: wound with [place] 00 dressing Medical changes Branch doxycycline Yes [id number] Starting 2 Univers monohydrate 3-08 days ity of 100 mg 00:00: before [place] capsule 00 surgery Medical take 1 Branch pill BID mupirocin 2 Yes [id number] Apply to Univers % ointment 3-08 surgical ity o f 00:00: wound with [place] 00 dressing Medical changes Branch fluticasone Yes ADMINISTER Univers propionate 2-21 1 SPRAY ity of 50 00:00: INTO EACH [place] mcg/actuati 00 NOSTRIL 1 Med ical on nasal TIME EACH Branch spray DAY. fluticasone Yes ADMINISTER Univers propionate 2-21 1 SPRAY ity of 50 00:00: INTO EACH [place] mcg/actuati 00 NOSTRIL 1 Med ical on nasal TIME EACH Branch spray DAY. abiraterone Yes Take by Uni vers 250 mg 2-15 mouth ity of tablet 00:00: [place] [facility] metoprolol Yes 1{tbl} Take 1 Uni vers tartrate 50 2-15 tablet by ity of mg tablet 00:00: mouth 2 [place] (two) Medical times Branch daily. abiraterone Yes Take by Uni vers 250 mg 2-15 mouth ity of tablet 00:00: [place] [facility] metoprolol Yes 1{tbl} Take 1 Uni vers tartrate 50 2-15 tablet by ity of mg tablet 00:00: mouth 2 [place] (two) Medical times Branch daily. metformin Yes TAKE 1 Univer s ER 500 mg 2-10 TABLET ity of 24 hr 00:00: (500 MG [place] tablet 00 TOTAL) BY Medical MOUTH ONE Branch TIME EACH DAY WITH DINNER DO NOT CRUSH, CHEW, OR SPLIT. metformin Yes TAKE 1 Univer s ER 500 mg 2-10 TABLET ity of 24 hr 00:00: (500 MG [place] tablet 00 TOTAL) BY Medical MOUTH ONE Branch TIME EACH DAY WITH DINNER DO NOT CRUSH, CHEW, OR SPLIT. sulfamethox 2020- Yes [id number] 1{tbl} Take 1 Univers azole-trime 1-04 tablet by ity of thoprim 00:00: mouth 2 [place] (BACTRIM 00 (two) Medical DS) 800-160 times Branch mg per daily. tablet sulfamethox 2020-1 Yes [id number] 1{tbl} Take 1 Univers azole-trime 1-04 tablet by ity of thoprim 00:00: mouth 2 [place] (BACTRIM 00 (two) Medical DS) 800-160 times Branch mg per daily. tablet FLUAD QUAD 2020-0 Yes PHARMACY [facility] ,65Y 9-10 ADMINISTER it y of UP,,PF, 60 00:00: ED [place] mcg (15 mcg 00 Medical x 4)/0.5 mL Branch Syrg semaglutide 2020-0 Yes 0.5 MG BY U nivers (OZEMPIC) 9-10 OTHER ity of 0.25 mg or 00:00: ROUTE PER [place] 0.5 mg(2 00 WEEK Medical mg/1.5 mL) Branch PnIj FLUAD QUAD 2020-0 Yes PHARMACY [facility] ,65 9-10 ADMINISTER it y of UP,,PF, 60 00:00: ED [place] mcg (15 mcg 00 Medical x 4)/0.5 mL Branch Syrg semaglutide 2020-0 Yes 0.5 MG BY U nivers (OZEMPIC) 9-10 OTHER ity of 0.25 mg or 00:00: ROUTE PER [place] 0.5 mg(2 00 WEEK Medical mg/1.5 mL) Branch PnIj finasteride 2019-0 Yes TAKE 1 Univ ers 5 mg tablet 8-27 TABLET BY ity of 00:00: MOUTH [place] 00 EVERY DAY Medical Branch finasteride 2020-0 Yes TAKE 1 Univ ers 5 mg tablet 8-27 TABLET BY ity of 00:00: MOUTH [place] 00 EVERY DAY Medical Branch TRESIBA 2019-0 Yes INJECT 35 Unive rs FLEXTOUCH 7-30 UNITS ity of U-100 100 00:00: UNDER THE [place] unit/mL (3 00 SKIN 1 Medical mL) InPn (ONE) TIME Branc h EACH DAY TRESIBA 2019-0 Yes INJECT 35 Unive rs FLEXTOUCH 7-30 UNITS ity of U-100 100 00:00: UNDER THE [place] unit/mL (3 00 SKIN 1 Medical mL) InPn (ONE) TIME Branc h EACH DAY lactulose 2019-0 Yes TAKE 15 ML Un tor[place] 10 gram/15 7-01 (10 G ity of mL solution 00:00: TOTAL) BY [place] 00 MOUTH 1 Medical (ONE) TIME Branch EACH DAY lactulose 2019-0 Yes TAKE 15 ML Un [place] 10 gram/15 7-01 (10 G ity of mL solution 00:00: TOTAL) BY [place] 00 MOUTH 1 Medical (ONE) TIME Branch EACH DAY losartan 50 2020-0 Yes 50mg Take 50 mg Univers mg tablet 5-21 by mouth. ity o f 00:00: [place] [address] Medical Branch simvastatin 2020-0 Yes 20mg Take 20 mg Univers 20 mg 5-21 by mouth. ity of tablet 00:00: [place] [address] Medical Branch losartan 50 2020-0 Yes 50mg Take 50 mg Univers mg tablet 5-21 by mouth. ity o f 00:00: [place] [facility] simvastatin 2020-0 Yes 20mg Take 20 mg Univers 20 mg 5-21 by mouth. ity of tablet 00:00: [place] [facility] levothyroxi 2020-0 Yes 75ug Take 75 Uni vers ne 75 mcg 5-04 mcg by ity of tablet 00:00: mouth. [place] [facility] levothyroxi 2020-0 Yes 75ug Take 75 Uni vers ne 75 mcg 5-04 mcg by ity of tablet 00:00: mouth. [place] [facility] Insulin 2020-0 Yes 1{each} 1 Each. Univ ers [place], 2-20 ity of Disposable, 00:00: [place] (OSMANY PEN 00 Medical NEEDLE) 32 Branch gauge x 5/32" Ndle Insulin 2020-0 Yes 1{each} 1 Each. Univ ers [place], 2-20 ity of Disposable, 00:00: [place] (OSMANY PEN 00 Medical NEEDLE) 32 Branch gauge x 5/32" Ndle Immunizations Ordered Filled Immunization Date Status Comments [facility] e Immunization Name Name SARS-COV-2 COVID-19 2021-07-08 Completed Unive rsity of MODERNA VACCINE 00:00:00 [facility] SARS-COV-2 COVID-19 2021-07-08 Completed Unive rsity of MODERNA VACCINE 00:00:00 [facility] SARS-COV-2 COVID-19 2020-09-26 Completed Unive rsity of MODERNA VACCINE 00:00:00 [facility] SARS-COV-2 COVID-19 2020-09-26 Completed Unive rsity of MODERNA VACCINE 00:00:00 [facility] SARS-COV-2 COVID-19 2020-08-30 Completed Unive rsity of MODERNA VACCINE 00:00:00 [facility] SARS-COV-2 COVID-19 2020-08-30 Completed Unive rsity of MODERNA VACCINE 00:00:00 [facility] Influenza Virus 2020-03-29 Completed Universit y of Vaccine 00:00:00 [facility] Influenza Virus 2020-03-29 Completed Universit y of Vaccine 00:00:00 [facility] Zoster(Zostavax)( 2019-08-25 Completed Unive rsity of ingles) 00:00:00 [facility] Zoster Vaccine 2019-08-25 Completed University of Recombinant 00:00:00 [facility] Zoster(Zostavax)( 2019-08-25 Completed Unive rsity of ingles) 00:00:00 [facility] Zoster Vaccine 2019-08-25 Completed University of Recombinant 00:00:00 [facility] Influenza Virus 2019-04-19 Completed Universit y of Vaccine Quad IM 00:00:[address] [facility] Multi-dose 6+ MO [place] Influenza Virus 2019-04-19 Completed Universit y of Vaccine Quad IM 00:00:[address] [facility] Multi-dose 6+ MO [place] Influenza High Dose 2019-04-06 Completed Unive rsity of 00:00:00 [facility] Influenza High Dose 2019-04-06 Completed Unive rsity of 00:00:00 [facility] Zoster(Zostavax)( 2019-02-14 Completed Unive rsity of ingles) 00:00:00 [facility] Zoster Vaccine 2019-02-14 Completed University of Recombinant 00:00:00 [facility] Zoster(Zostavax)( 2019-02-14 Completed Unive rsity of ingles) 00:00:00 [facility] Zoster Vaccine 2019-02-14 Completed University of Recombinant 00:00:00 [facility] Pneumococcal 2014-07-20 Completed University o f Polysaccharide, 00:00:00 [facility] ical PPSV23 (PNEUMOVAX) Branch Pneumococcal 2014-07-20 Completed University o f Polysaccharide, 00:00:00 [facility] PPSV23 (PNEUMOVAX) [place] Vital Signs Vital Name Observation Time Observation Value Comments Source Systolic blood 2021-10-23 20:38:00 158 mm[Hg] Univer sity of pressure [facility] Diastolic blood 2021-10-23 20:38:00 88 mm[Hg] Unive rsity of pressure [facility] Heart rate 2021-10-23 20:35:00 84 /min [facility] Body temperature 2021-10-23 20:35:00 35.56 Lana Univ ersity of [facility] Body height 2021-10-23 20:35:00 172.7 cm [facility] Body weight 2021-10-23 20:35:00 84.414 kg [facility] BMI 2021-10-23 20:35:00 28.30 kg/m2 [facility] Oxygen saturation in 2021-10-23 20:35:00 97 /min [facility] Arterial blood by [facility] Pulse oximetry Branch Procedures This patient has no known procedures. Encounters Start End Encounter Admission Attending Care Care Encounter Source Date/Time Date/Time Type Type Clinicians Facility Department ID 2022-02-25 2022-02-25 Telephone Jess Munoz [facility] [id number] Univers 00:00:00 00:00:00 SPECIALTY [id number] [facility] AT [id number] [place] bony AR[place]IERen[place] [address] Branch [place] 2022-02-24 2022-02-24 Outpatient R JESS MUNOZ [facility] [id number] Univers 14:00:00 14:00:00 ity [facility] 2021-10-23 2021-10-23 Office Jess Munoz [facility] [id number] Univers 15:30:00 15:56:49 Visit SPECIALTY [id number] ity of CARE [id number] [facility] AT [id number] [place] erwinsumeet AHUJA [address] Branch [place] 2021-10-08 2021-10-08 Outpatient R MOISES RUANO [facility] [id number] Univers 09:00:00 16:34:21 RESHMA [facility] 2019-11-16 2019-11-16 [employer] Programmer Guadalupe Urrutia [facility] [id number] 08:46:07 09:01:07 Visit Lab Main [place] [id number] Jennifer [id number] Professio [id number] [address] 2019-09-26 2019-09-27 Outpatient [facility] 006 7 [facility] 12:26:00 13:45:00 , DEAN Results This patient has no known results.
[2022-03-13 08:19] LABS: Absolute Lymphocytes (CBC) 0.9 K/uL (0.7-4.9); Hematocrit 38.1 % (39.6-49.0); Lymphocytes % 12.2 % (15.3-44.8); MCV 72.8 fL (80-100); MPV 6.6 fL (7.6-11.3); RBC Red Blood Cell Count 5.23 M/uL (4.33-5.43)
[2022-03-13 08:20] LABS: Urine Blood 3+ (Negative); Urine Glucose Negative (Negative); Urine Protein 2+ (Negative); Urine pH 7.5 (5.0-7.0)
[2022-03-13] MEDS ORDERED: FAMOTIDINE 20 MG/2 ML VIAL IV ONE (08:35)
[2022-03-13 08:38] LABS: Albumin 3.1 g/dL (3.4-5.0); Bilirubin Total 0.8 mg/dL (0.2-1.0); Potassium 3.4 mmol/L (3.5-5.1); Protein, Total 7.2 g/dL (6.4-8.2)
[2022-03-13 08:39] LABS: Urine Bacteria 20-50 /HPF (<20); Urine RBC 21-50 /HPF (None Seen)
[2022-03-13] MEDS ORDERED: CEFTRIAXONE 1000 MG/VIAL ONE (10:41)
[2022-03-13] MEDS ORDERED: NA CHLORIDE 0.9% 50 ML ONE (10:41)
--- NOTE | 2022-03-13 11:13 | RAD REPORT ---
EXAM DESCRIPTION: CT - Abdomen Pelvis W Contrast - 03/13/2022 10:54 am CLINICAL HISTORY: abdominal tenderness, history recent radiation therapy for skin cancer, chemothera py for prostate cancer COMPARISON: Chest Abdomen Pelvis W Cont dated 01/02/2022; Abdomen Pelvis W Contrast dated 03/05/2021 TECHNIQUE: Biphasic, helical CT imaging of the abdomen and pelvis was performed following 100 ml non -ionic IV contrast. No oral contrast administered. All CT scans are performed using dose optimization technique as appropriate and may include automated exposure control or mA/KV adjustment according to patient size. FINDINGS: No suspicious findings in the lung bases. No focal liver parenchymal lesion. Numerous hepatic granulomatous type calcifications are present. No portal vein abnormality. No suspicious liver lesions seen. There is a small anterior hepatic cyst th at is unchanged. No pancreatic or peripancreatic abnormality identifiable. No acute splenic finding s een. There are granulomatous calcifications present. Subcapsular splenic fluid collection is been see n on multiple prior studies. Cholecystectomy clips are present. No abnormal biliary tree dilatation. Symmetric renal function is seen with no hydronephrosis or suspicious renal mass. Renal cysts are pre sent. Exophytic cyst lateral lower pole left kidney 3.3 cm in diameter contains rim calcification. No change in characteristics back to February 2021. No pyelonephritis or acute parenchymal process. Urina ry bladder is contracted around a Woody catheter which accentuates wall thickness. Posterior left alyx dder calcification may be bladder stone. Similar findings have been seen. Cystitis cannot be evaluate d. No adrenal abnormalities. No gastric wall thickening or mass identified. No dilation of the small bowel. No appendicitis findin gs. Clips are present in the patient is probably status post cholecystectomy. Patient has very pronou nced sigmoid diverticulosis. No acute diverticulitis confirmed. No free air, free fluid or inflammat ory stranding. No hernia, mass or bulky lymphadenopathy. No suspicious bony findings. Disc and bone degenerative changes are present. IMPRESSION: Contrast enhanced CT abdomen and pelvis showing no acute or emergent finding. Urinary bladder is contracted around a Woody catheter which accentuates bladder wall thickness. Punct ate bladder stones are present. Cystitis cannot be excluded in the setting of a tightly contracted bl adder. Nonacute findings are detailed in the body of the report.
--- NOTE | 2022-03-13 11:38 | ER ---
Nurse's Notes [facility] Mya Name: Kenji Hunt Age: 82 yrs Sex: Male : 1940 Arrival Date: 03/13/2022 Time: 07:45 Bed 18 Private MD: Rosalinda Bennett Diagnosis: UTI/ Urinary tract infection, site not specified;Muscle weakness (generalized);Essential (primary) hypertension Presentation: 03/13 08:00 Chief complaint: Patient's son or daughter states: has been receiving radiation iw treatments for skin caner X 6 weeks, is also on oral chemo for prostate cancer, has not been eating, can't keep food down, is able to tolerate liquids, also switches between having constipation and diarrhea. Coronavirus screen: At this time, the client does not indicate any symptoms associated with coronavirus-19. Ebola Screen: Patient negative for fever greater than or equal to 101.5 degrees Fahrenheit, and additional compatible Ebola Virus Disease symptoms Patient denies exposure to infectious person. Patient denies travel to an Ebola-affected area in the 21 days before illness onset. No symptoms or risks identified at this time. Initial Sepsis Screen: Does the patient meet any 2 criteria? No. Patient's initial sepsis screen is negative. Does the patient have a suspected source of infection? No. Patient's initial sepsis screen is negative. Risk Assessment: Do you want to hurt yourself or someone else? Patient reports no desire to harm self or others. 08:00 Method Of Arrival: Ambulatory iw 08:00 Acuity: OZZIE 3 iw 13:10 Onset of symptoms was March 07, 2022. kb3 Historical: - Allergies: 08:02 No Known Allergies; iw - PMHx: 08:02 Cancer in situ of urinary bladder; History of urinary tract infection; skin cancer; iw - Immunization history:: Adult Immunizations up to date, Client reports receiving the 2nd dose of the Covid vaccine, Last tetanus immunization: up to date. - Social history:: Smoking status: Patient denies any tobacco usage or history of. Screenin:45 Abuse screen: Denies threats or abuse. Nutritional screening: Decreased appetite x 1 aa5 week ago . Tuberculosis screening: No symptoms or risk factors identified. Fall Risk IV access (20 points). Total Dorantes Fall Scale indicates No Risk (0-24 pts). Assessment: 08:00 General: Appears comfortable, Behavior is calm, cooperative. Pain: Denies pain. Neuro: aa5 Level of Consciousness is awake, alert, obeys commands, Oriented to person, place, time, situation. Cardiovascular: Heart tones S1 S2 present Rhythm is sinus rhythm. Respiratory: Airway is patent Respiratory effort is even, unlabored, Respiratory pattern is regular, symmetrical. GI: Abdomen is round non-distended, Bowel sounds present X 4 quads. diminished in right upper quadrant, left upper quadrant, right lower quadrant and left lower quadrant Abd is soft and non tender X 4 quads. Reports nausea, Reports decreased appetite x 1 week ago, reports diarrhea "all night last night" Patient currently denies vomiting. : Woody catheter noted with leg bag. EENT: Hearing aids noted to margarita ears . Derm: Skin is pink, warm \\T\\ dry. Musculoskeletal: Range of motion: intact in all extremities. 08:40 Reassessment: Patient is alert, oriented x 3, equal unlabored respirations, skin aa5 warm/dry/pink. 09:30 Reassessment: Patient is alert, oriented x 3, equal unlabored respirations, skin aa5 warm/dry/pink. Reports nausea has improved, Awaiting CT scan, CT contacted. . 10:35 Reassessment: Pt to CT via stretcher . aa5 11:00 Reassessment: Patient is alert, oriented x 3, equal unlabored respirations, skin aa5 warm/dry/pink. Pt back from CT . 12:00 Reassessment: Awaiting Woody catheter from materials, report given to SASHA Nguyen. aa5 Vital Signs: 08:00 BP 164 / 71; Pulse 82; Resp 18 S; Pulse Ox 98% on R/A; iw 08:40 BP 158 / 72; Pulse 80; Resp 18 S; Temp 98.9(O); Pulse Ox 100% on R/A; Pain 0/10; aa5 09:30 BP 143 / 69; Pulse 71; Resp 14 S; Pulse Ox 99% on R/A; aa5 10:30 BP 146 / 68; Pulse 73; Resp 16 S; Pulse Ox 99% on R/A; aa5 13:08 BP 150 / 67; Pulse 83; Resp 18; Pulse Ox 100% ; Pain 01/10; kb3 ED Course: 07:45 Patient arrived in ED. am2 07:45 Rosalinda Bennett MD is Private Physician. am2 07:51 David Serrano DO is Attending Physician. ms3 08:00 Arm band placed on. aa5 08:00 Patient has correct armband on for positive identification. Bed in low position. Call aa5 light in reach. Side rails up X2. Adult w/ patient. 08:02 Triage completed. iw 08:03 Alma Delia Macdonald, RN is Primary Nurse. aa5 08:22 Initial lab(s) drawn, by me, sent to lab. Inserted saline lock: 20 gauge in right kj1 antecubital area, using aseptic technique. Blood collected. 08:22 Urine collected: straight cath specimen, cloudy, umicro,culture sent notified . kj1 10:56 Abdomen In Process Unspecified. EDMS 12:14 Primary Nurse role handed off by Alma Delia Macdonald, RN kb3 12:14 Wendy Pedraza, SASHA is Primary Nurse. kb3 12:50 Woody cath inserted, using sterile technique, 16 Fr., by ca, balloon inflated, to kb3 gravity drainage, Woody cath removed intact, balloon deflated, Indwelling catheter removed and replaced per MD order. 13:06 IV discontinued, intact, bleeding controlled, No redness/swelling at site. kb3 13:09 No provider procedures requiring assistance completed. kb3 Administered Medications: 08:40 Drug: Pepcid (famotidine) 20 mg Route: IVP; Site: right antecubital; aa5 08:50 Follow up: Response: No adverse reaction aa5 11:01 Drug: Rocephin (cefTRIAXone) 1 grams Route: IV; Rate: calculated rate; Site: right aa5 antecubital; 13:11 Follow up: IV Status: Completed infusion; IV Intake: 100ml kb3 13:11 Follow up: Response: No adverse reaction kb3 Medication: 13:09 VIS not applicable for this client. kb3 Intake: 13:11 IV: 100ml; Total: 100ml. kb3 Outcome: 11:37 Discharge ordered by MD. ms3 13:10 Discharged to home via wheelchair. kb3 13:10 Condition: stable 13:10 Discharge instructions given to patient, family, Instructed on discharge instructions, follow up and referral plans. medication usage, Demonstrated understanding of instructions, follow-up care, medications, Prescriptions given X 1. 13:12 Patient left the ED. kb3 Signatures: Dispatcher [employer] EDKandice Lee RN SASHA Alma Delia Macdonald RN RN aa5 Heidy Phillips am2 Lauren Jiang kj1 David Serrano DO DO ms3 Wendy Pedraza, RN RN kb3 Corrections: (The following items were deleted from the chart) 11:11 08:02 Arm band placed on iw aa5 11:51 08:00 : No signs and/or symptoms were reported regarding the genitourinary system. aa5aa5 13:08 13:06 Woody cath inserted, using sterile technique, 16 Fr., by ca, balloon inflated, to kb3 gravity drainage, Woody cath removed intact, balloon deflated, Indwelling catheter removed and replaced per MD order kb3
--- NOTE | 2022-03-13 11:38 | EDPHYS ---
Physician Documentation [facility] Name: Kenji Hunt Age: 82 yrs Sex: Male : 1940 Arrival Date: 03/13/2022 Time: 07:45 Bed 18 Private MD: Rosalinda Bennett ED Physician David Serrano HPI: 03/13 08:20 This 82 yrs old Male presents to ER via Ambulatory with complaints of Decreased ms3 Appetite, General Weakness. 08:20 Prostate cancer, squamous cell skin cancer, diabetes, hypertension presents for ms3 generalized weakness, nausea. Patient's daughter states patient has not eaten in 4 days. Patient has tolerated Gatorade. Patient's urologist is Dr. Sy and oncologist is Dr. Howe. Patient denies pain at this time. Patient endorses nauseatook 8 mg of Zofran at 7 AM. Patient denies alleviating or inciting factors.. Historical: - Allergies: 08:02 No Known Allergies; iw - PMHx: 08:02 Cancer in situ of urinary bladder; History of urinary tract infection; skin cancer; iw - Immunization history:: Adult Immunizations up to date, Client reports receiving the 2nd dose of the Covid vaccine, Last tetanus immunization: up to date. - Social history:: Smoking status: Patient denies any tobacco usage or history of. ROS: 08:21 Neck: Negative for injury, pain, and swelling, Cardiovascular: Negative for chest pain, ms3 and palpitations. Respiratory: Negative for shortness of breath, cough, wheezing, and pleuritic chest pain, Abdomen/GI: Negative for abdominal pain, nausea, vomiting, diarrhea, and constipation. 08:21 Constitutional: Positive for poor PO intake, Generalized weakness. 08:21 All other systems are negative. Exam: 08:21 Constitutional: This is a well developed, well nourished patient who is awake, alert, ms3 and in no acute distress. Head/Face: Normocephalic, atraumatic. Neck: Trachea midline, no cervical lymphadenopathy. Supple, full range of motion without nuchal rigidity, or vertebral point tenderness. No Meningismus. Chest/axilla: Normal chest wall appearance and motion. Nontender with no deformity. Cardiovascular: Regular rate and rhythm with a normal S1 and S2. No gallops, murmurs, or rubs. Normal PMI, no JVD. No pulse deficits. Respiratory: Lungs have equal breath sounds bilaterally, clear to auscultation and percussion. No rales, rhonchi or wheezes noted. No increased work of breathing, no retractions or nasal flaring. 08:21 Skin: Warm, dry with normal turgor. Normal color with no rashes, no lesions, and no evidence of cellulitis. MS/ Extremity: Pulses equal, no cyanosis. Neurovascular intact. Full, normal range of motion. Psych: Awake, alert, with orientation to person, place and time. Behavior, mood, and affect are within normal limits. 08:21 Abdomen/GI: Inspection: abdomen appears normal, Bowel sounds: normal, in all quadrants, Palpation: moderate abdominal tenderness, in all quadrants. Vital Signs: 08:00 BP 164 / 71; Pulse 82; Resp 18 S; Pulse Ox 98% on R/A; iw 08:40 BP 158 / 72; Pulse 80; Resp 18 S; Temp 98.9(O); Pulse Ox 100% on R/A; Pain 0/10; aa5 09:30 BP 143 / 69; Pulse 71; Resp 14 S; Pulse Ox 99% on R/A; aa5 10:30 BP 146 / 68; Pulse 73; Resp 16 S; Pulse Ox 99% on R/A; aa5 13:08 BP 150 / 67; Pulse 83; Resp 18; Pulse Ox 100% ; Pain 01/10; kb3 MDM: 08:00 Patient medically screened. ms3 11:37 Differential Diagnosis altered mental status, sepsis, Uremia. ms3 11:37 Data reviewed: vital signs, nurses notes, lab test result(s), radiologic studies, and ms3 as a result, I will discharge patient. Counseling: I had a detailed discussion with the patient and/or guardian regarding: the historical points, exam findings, and any diagnostic results supporting the discharge/admit diagnosis, lab results, radiology results, the need for outpatient follow up, to return to the emergency department if symptoms worsen or persist or if there are any questions or concerns that arise at home. Special discussion: I discussed with the patient/guardian in detail that at this point there is no indication for admission to the hospital. It is understood, however, that if the symptoms persist or worsen the patient needs to return immediately for re-evaluation. 11:37 ED course: Discussed labs and radiographs with patient and his daughter. Patient ms3 remains in stable condition without complaints, tolerating po, nad, non-toxic appearing.. 03/13 08:04 Order name: CBC with Diff; Complete Time: 09:39 ms3 03/13 08:04 Order name: CMP; Complete Time: 09:39 ms3 03/13 08:04 Order name: Lipase; Complete Time: 09:39 ms3 03/13 08:04 Order name: Urine Microscopic Only; Complete Time: 09:39 ms3 03/13 08:20 Order name: Urine Dipstick-Ancillary; Complete Time: 09:39 EDMS 03/13 08:42 Order name: Urine Culture EDMS 03/13 08:04 Order name: IV Saline Lock; Complete Time: 08:22 ms3 03/13 08:04 Order name: Labs collected and sent; Complete Time: 08:22 ms3 03/13 08:04 Order name: Urine Dipstick-Ancillary (obtain specimen); Complete Time: 08:22 ms3 03/13 10:06 Order name: Abdomen ; Complete Time: 11:28 EDMS 03/13 11:35 Order name: Woody; Complete Time: 13:11 ms3 Administered Medications: 08:40 Drug: Pepcid (famotidine) 20 mg Route: IVP; Site: right antecubital; aa5 08:50 Follow up: Response: No adverse reaction aa5 11:01 Drug: Rocephin (cefTRIAXone) 1 grams Route: IV; Rate: calculated rate; Site: right aa5 antecubital; 13:11 Follow up: IV Status: Completed infusion; IV Intake: 100ml kb3 13:11 Follow up: Response: No adverse reaction kb3 Disposition Summary: 03/13/22 11:37 Discharge Ordered Location: Home ms3 Condition: Stable ms3 Diagnosis - UTI/ Urinary tract infection, site not specified ms3 - Muscle weakness (generalized) ms3 - Essential (primary) hypertension ms3 Discharge Instructions: - Discharge Summary Sheet ms3 - Urinary Tract Infection, Adult ms3 Forms: - Medication Reconciliation Form ms3 - Thank You Letter ms3 - Antibiotic Education ms3 - Prescription Opioid Use ms3 Prescriptions: - cefpodoxime 200 mg Oral Tablet - take 2 tablets by ORAL route every 12 hours with food; 40 tablet; Refills: 0, ms3 Product Selection Permitted Signatures: Dispatcher [employer] Kandice Degroot, SASHA RN iw Alma Delia Macdonald RN RN aa5 David Serrano DO DO ms3 Wendy Pedraza, SASHA RN kb3 Corrections: (The following items were deleted from the chart) 22:30 11:37 Data reviewed: vital signs, nurses notes, lab test result(s), EKG, radiologic ms3 studies, and as a result, I will discharge patient, ms3
[2022-03-13 13:30] VITALS: TEMP 98.9
[2022-03-13 13:37] VITALS: BP 150/67; O2SAT 100
== END 2022-03-13 13:12 | disposition home or self-care (01) ==
LOC: ER 07:43
DX: N39.0 Urinary tract infection, site not specified (principal); R11.0 Nausea; I10 Essential (primary) hypertension; D09.0 Carcinoma in situ of bladder; C61 Malignant neoplasm of prostate; C44.92 Squamous cell carcinoma of skin, unspecified
CPT/HCPCS: 96365; 87088; 85025; 87086; 36415; 87077 ×3; 87186 ×3; 83690; 80053; 74177; 51702; 96375; 99285; 96366; Q9967; 81003; 81015

== ENCOUNTER 2022-11-11 14:26 | Emergency (ER) | payer OTHER ==
--- OUTSIDE RECORDS SUMMARY | 2022-11-11 14:29 | XMS REPORT | Continuity of Care Document ---
:1940 Author Organization [facility] t Address [address] [place] [address] [address] [place] [address] Care Team Providers Name Role Phone Jackie Matthews MD Primary Care Physician JESS CAMPOS Attending Clinician Unavailable Jess Campos MD Attending Clinician PAPITO DE LEON JR Attending Clinician Unavailable Moises Cortes MD, Richard F Attending Clinician [phone] Doctor Unassigned, [place] Attending Clinician Unavailable INDY HINDS Attending Clinician Unavailable Pob, [facility] Main Attending Clinician Unavailable Jackie Matthews MD Attending Clinician JACKIE MATTHEWS Attending Clinician Unavailable Guzman PRESCRIPTION CLERK LENSESIndy Attending Clinician Radha Vargas MD Attending Clinician , Adc Surg Spec Procedure Attending Clinician Unavailable RADHA VARGAS Attending Clinician Unavailable 2, [facility] Attending Clinician Unavailable DEAN ROSS Attending Clinician Unavailable JESS CAMPOS Admitting Clinician Unavailable Jess Campos MD Admitting Clinician DEAN ROSS Admitting Clinician Unavailable Payers Payer Name Policy Type Policy Number Effective Date Expiration Date S janice MEDICARE PART A [id number] 2003 \\T\\ B 00:00:00 [employer] INDEMNITY [id number] 2013 00:00:00 Problems Condition Condition Condition Status Onset Resolution [...] Added automatic ally from request for surgery [id number] Allergies, Adverse Reactions, Alerts Allergy Allergy Status Severity Reaction(s) Onset Inactive Treating Comm ents Source Name Type Date Date Clinician NO KNOWN Drug Active Univers ALLERGIE Class ity of S [facility] Social History Social Habit Start Date Stop Date Quantity Comments Source Exposure to 2021-09-23 2021-10-23 Not sure [facility] [place] [facility]-CoV-2 00:00:00 15:26:00 [facility] (event) [place] Tobacco use and 2021-10-09 2021-10-09 Smokeless tobacco Un iversity of exposure 00:00:00 00:00:00 non-user [facility] Sex Assigned At [birth year] ARON Ross 00:00:00 00:00:00 Medical Center Smoking Status Start Date Stop Date Source Never smoked tobacco [facility] Medications Ordered Filled Start Stop Current Ordering Indication Dosage Frequency Signature Comments Components Source Medication Medication Date Date Medication? Clinician (SIG) Name Name aspirin Yes 81mg Take 81 mg U nivers mg EC 3-25 by mouth. ity of tablet 13:11: [address] insulin Yes 35U inject 35 Unive rs degludec 3-25 Units ity of (TRESIBA 13:11: [place] FLEXTOUCH 19 skin. Medical U-100) 100 Branch unit/mL (3 mL) InPn thyroid Yes [place] Univers (ARMOUR 3-25 Thyroid 60 ity of THYROID) 60 13:11: mg tablet [place] mg tablet [address] [place] [address] aspirin 81 Yes 81mg Take 81 mg U nivers mg EC 3-25 by mouth. ity of tablet 13:11: [place] [facility] insulin Yes 35U inject 35 Unive rs degludec 3-25 Units ity of (TRESIBA 13:11: [place] FLEXTOUCH 19 skin. Medical U-100) 100 Branch unit/mL (3 mL) InPn thyroid Yes [place] Univers (ARMOUR 3-25 Thyroid 60 ity of THYROID) 60 13:11: mg tablet [place] mg tablet 19 Medical Branch doxycycline Yes [id number] Starting 2 Univers monohydrate 3-08 days ity of 100 mg 00:00: before [place] capsule 00 surgery Medical take 1 Branch pill BID mupirocin 2 Yes [id number] Apply to Univers % ointment 3-08 surgical ity o f 00:00: wound with [place] 00 dressing Medical changes Branch doxycycline Yes [id number] Starting 2 Univers monohydrate 3-08 days ity of 100 mg 00:00: before [place] capsule 00 surgery Medical take 1 Branch pill BID mupirocin 2 Yes [id number] Apply to Univers % ointment -08 surgical ity o f 00:00: wound with [place] 00 dressing Medical changes Branch fluticasone Yes [...] mg 2-15 mouth ity of tablet 00:00: Medical Branch metoprolol Yes 1{tbl} Take 1 Uni vers tartrate 50 2-15 tablet by ity of mg tablet 00:00: mouth 2 (two) Medical times Branch daily. abiraterone Yes Take by Uni vers 250 mg 2-15 mouth ity of tablet 00:00: Medical Branch metoprolol 0 Yes 1{tbl} Take 1 Uni vers tartrate 50 2-15 tablet by ity of mg tablet 00:00: mouth 2 (two) Medical times Branch daily. metformin 2022-0 Yes TAKE 1 Univer s ER 500 mg 2-10 TABLET ity of 24 hr 00:00: (500 MG [place] tablet 00 TOTAL) BY Medical MOUTH ONE Branch TIME EACH DAY WITH DINNER DO NOT CRUSH, CHEW, OR SPLIT. metformin Yes TAKE 1 Univer s ER 500 mg 2-10 TABLET ity of 24 hr 00:00: (500 MG [place] tablet 00 TOTAL) BY Medical MOUTH ONE Branch TIME EACH DAY WITH DINNER DO NOT CRUSH, CHEW, OR SPLIT. sulfamethox 2020-1 Yes [id number] 1{tbl} Take 1 Univers azole-trime 1-04 tablet by ity of thoprim 00:00: mouth 2 [place] (BACTRIM 00 (two) Medical DS) 800-160 times Branch mg per daily. tablet sulfamethox 2020-1 Yes [id number] 1{tbl} Take 1 Univers azole-trime 1-04 tablet by ity of thoprim 00:00: mouth 2 [place] (BACTRIM 00 (two) Medical DS) 800-160 times Branch mg per daily. tablet FLUAD QUAD 2020-0 Yes PHARMACY [facility] 9- ADMINISTER it y of UP,,PF, 60 00:00: ED [place] mcg (15 mcg 00 Medical x 4)/0.5 mL Branch Syrg semaglutide 2020-0 Yes 0.5 MG BY U nivers (OZEMPIC) 9- OTHER ity of 0.25 mg or 00:00: ROUTE PER [place] 0.5 mg(2 00 WEEK Medical mg/1.5 mL) Branch PnIj FLUAD QUAD 2020-0 Yes PHARMACY [facility] 9- ADMINISTER it y of UP,,PF, 60 00:00: ED [place] mcg (15 mcg 00 Medical x 4)/0.5 mL Branch Syrg semaglutide 2020-0 Yes 0.5 MG BY U nivers (OZEMPIC) 9-10 OTHER ity of 0.25 mg or 00:00: ROUTE PER [place] 0.5 mg(2 00 WEEK Medical mg/1.5 mL) Branch PnIj finasteride 2020-0 Yes TAKE 1 Univ ers 5 mg tablet 8-27 TABLET BY ity of 00:00: MOUTH [place] 00 EVERY DAY Medical Branch finasteride 2020-0 Yes TAKE 1 Univ ers 5 mg tablet 8-27 TABLET BY ity of 00:00: MOUTH [place] [address] EVERY DAY Medical Branch TRESIBA 2020-0 Yes INJECT 35 Unive rs FLEXTOUCH 7-30 UNITS ity of U-100 100 00:00: UNDER THE [place] unit/mL (3 00 SKIN 1 Medical mL) InPn (ONE) TIME Branc h EACH DAY TRESIBA 2020-0 Yes INJECT 35 Unive rs FLEXTOUCH 7-30 UNITS ity of U-100 100 00:00: UNDER THE [place] unit/mL (3 00 SKIN 1 Medical mL) InPn (ONE) TIME Branc h EACH DAY lactulose 2020-0 Yes TAKE 15 ML Un tori 10 gram/15 7-01 (10 G ity of mL solution 00:00: TOTAL) BY [place] 00 MOUTH 1 Medical (ONE) TIME Branch EACH DAY lactulose 2020-0 Yes TAKE 15 ML Un tori 10 gram/15 7-01 (10 G ity of mL solution 00:00: TOTAL) BY [place] 00 MOUTH 1 Medical (ONE) TIME Branch EACH DAY losartan 50 2020-0 Yes 50mg Take 50 mg Univers mg tablet 5-21 by mouth. ity o f 00:00: [address] simvastatin 2020-0 Yes 20mg Take 20 mg Univers 20 mg 5-21 by mouth. ity of tablet 00:00: [address] losartan 50 2020-0 Yes 50mg Take 50 mg Univers mg tablet 5-21 by mouth. ity o f 00:00: [address] simvastatin 2020-0 Yes 20mg Take 20 mg Univers 20 mg 5-21 by mouth. ity of tablet 00:00: [address] Branch levothyroxi 2020-0 Yes 75ug Take 75 Uni vers ne 75 mcg 5-04 mcg by ity of tablet 00:00: mouth. [address] levothyroxi 2020-0 Yes 75ug Take 75 Uni vers ne 75 mcg 5-04 mcg by ity of tablet 00:00: mouth. [address] Branch Insulin 2020-0 Yes 1{each} 1 Each. Univ ers [place], 2-20 ity of Disposable, 00:00: [place] (OSMANY PEN 00 Medical NEEDLE) 32 Branch gauge x 5/32" Ndle Insulin 2020-0 Yes 1{each} 1 Each. Univ ers [place], 2-20 ity of Disposable, 00:00: [place] (OSMANY PEN 00 Medical NEEDLE) 32 Branch gauge x 5/32" Ndle Immunizations Ordered Filled Immunization Date Status Comments [facility] e Immunization Name Name SARS-COV-2 COVID-19 2021-07-08 Completed Unive rsity of MODERNA VACCINE 00:00:00 [facility] [place] [facility] SARS-COV-2 COVID-19 2021-07-08 Completed Unive rsity of MODERNA VACCINE 00:00:00 [facility] [place] [facility] SARS-COV-2 COVID-19 2020-09-26 Completed Unive rsity of MODERNA VACCINE 00:00:00 [facility] [place] [facility] SARS-COV-2 COVID-19 2020-09-26 Completed Unive rsity of MODERNA VACCINE 00:00:00 [facility] [place] [facility] SARS-COV-2 COVID-19 2020-08-30 Completed Unive rsity of MODERNA VACCINE 00:00:00 [facility] [place] [facility] SARS-COV-2 COVID-19 2020-08-30 Completed Unive rsity of MODERNA VACCINE 00:00:00 [facility] [place] [facility] Influenza Virus 2020-03-29 Completed Universit y of Vaccine 00:00:00 [facility] Influenza Virus 2020-03-29 Completed Universit y of Vaccine 00:00:00 [facility] Zoster(Zostavax)( 2019-08-25 Completed Unive rsity of ingmissy) 00:00:00 [facility] Zoster Vaccine 2019-08-25 Completed University of Recombinant 00:00:00 [facility] Zoster(Zostavax)( 2019-08-25 Completed Unive rsity of ingmissy) 00:00:00 [facility] Zoster Vaccine 2019-08-25 Completed University of Recombinant 00:00:00 [facility] Influenza Virus 2019-04-19 Completed Universit y of Vaccine Quad IM 00:00:00 [facility] [place] [facility] Multi-dose 6+ MO Branch Influenza Virus 2019-04-19 Completed Universit y of Vaccine Quad IM 00:00:00 [facility] Multi-dose 6+ MO Branch Influenza High Dose 2019-04-06 Completed Unive rsity of 00:00:00 [facility] Influenza High Dose 2019-04-06 Completed Unive rsity of 00:00:00 [facility] Zoster(Zostavax)( 2019-02-14 Completed Unive rsity of ingles) 00:00:00 [facility] Zoster Vaccine 2019-02-14 Completed University of Recombinant 00:00:00 [facility] Zoster(Zostavax)(Sh 2019-02-14 Completed Unive rsity of kim) 00:00:00 [facility] Zoster Vaccine 2019-02-14 Completed University of Recombinant 00:00:00 [facility] Pneumococcal 2014-07-20 Completed University o f Polysaccharide, 00:00:00 [place] Med ical PPSV23 (PNEUMOVAX) Branch Pneumococcal 2014-07-20 Completed University o f Polysaccharide, 00:00:00 [place] Med ical PPSV23 (PNEUMOVAX) Branch Vital Signs Vital Name Observation Time Observation Value Comments Source Systolic blood 2021-10-23 20:38:00 158 mm[Hg] Univer sity of [facility] Diastolic blood 2021-10-23 20:38:00 88 mm[Hg] Unive rsity of [facility] Heart rate 2021-10-23 20:35:00 84 /min [facility] Body temperature 2021-10-23 20:35:00 35.56 Lana [facility] Body height 2021-10-23 20:35:00 172.7 cm Universi [facility] Body weight 2021-10-23 20:35:00 84.414 kg [facility] BMI 2021-10-23 20:35:00 28.30 kg/m2 [facility] Oxygen saturation in 2021-10-23 20:35:00 97 /min [facility] Arterial blood by [facility] Pulse oximetry Branch Systolic blood 2021-10-23 20:38:00 158 mm[Hg] Univer sity of [facility] Diastolic blood 2021-10-23 20:38:00 88 mm[Hg] Unive rsity of [facility] Heart rate 2021-10-23 20:35:00 84 /[facility] 2021-10-23 20:35:00 35.56 Lana [facility] Body height 2021-10-23 20:35:00 172.7 [facility] Body weight 2021-10-23 20:35:00 84.414 kg [facility] BMI 2021-10-23 20:35:00 28.30 kg/m2 [facility] Oxygen saturation in 2021-10-23 20:35:00 97 /min University Arterial blood by [facility] Pulse oximetry Branch Procedures This patient has no known procedures. Encounters Start End Encounter Admission Attending Care Care Encounter Source Date/Time Date/Time Type Type Clinicians Facility Department ID 2021-10-09 Outpatient R JESS CAMPOS [facility] SPL [id number] Univers 16:55:37 ity [facility] 2022-02-25 2022-02-25 Telephone Andres [facility] [id number] Univers 00:00:00 00:00:00 SPECIALTY [id number] ity of C[place] [id number] [place] [phone] Ne bony AHUJA [address] [place] [address] 2022-02-24 2022-02-24 Outpatient R ANDRES JESS [facility] [id number] Univers 14:00:00 14:00:00 ity [facility] 2021-10-23 2021-10-23 Outpatient R JESS CAMPOS [facility] [id number] Univers 15:30:00 15:56:49 ity [facility] 2021-10-23 2021-10-23 Office Andres [facility] [id number] Univers 15:30:00 15:56:49 Visit SPECIALTY [id number] ity of C[place] [id number] [place] [phone] Ne bony AHUJA [address] [place] [address] 2021-10-23 2021-10-23 Outpatient R JESS CAMPOS [facility] [id number] Univers 15:30:00 15:56:49 ity [facility] 2021-10-23 2021-10-23 Office Andres [facility] [id number] Univers 15:30:00 15:56:49 Visit SPECIALTY [id number] ity of CARE [id number] [place] [phone] Ne bony AHUJA [address] [place] [address] 2021-10-16 2021-10-16 [facility] [id number] Univers 15:30:00 16:12:24 Visit SPECIALTY [id number] ity of CARE [id number] [place] [phone] Ne bony AHUJA [address] [place] [address] 2021-10-16 2021-10-16 Office Andres [facility] 1.2.840.114 [id number] Univers 15:30:00 16:12:24 Visit SPECIALTY [id number] ity of C[place] 4.2.7.2.686 [place] [phone] Ne bony AHUJA [address] [place] [address] 2021-10-16 2021-10-16 Outpatient R ANDRES [facility] [id number] Univers 15:30:00 16:12:24 ity of [facility] 2021-10-16 2021-10-16 Outpatient R ANDRES [facility] [id number] Univers 15:30:00 16:12:24 ity [facility] 2021-10-11 2021-10-11 Outpatient R ANDRES [facility] [id number] Univers 09:11:00 13:10:00 ity of [facility] 2021-10-11 2021-10-11 [facility] Andres [facility] [id number] Univers 09:11:00 13:10:00 Encounter HEALTH [id number] ity of LE[place] 4.2.7.2.686 [facility] [phone] [address] ([facility]) 2021-10-11 2021-10-11 Surgery Andres [facility] 1.2.840.114 [id number] Univers 10:00:00 11:39:00 SPECIALTY 350.1.13.10 ity of CARE 4.2.7.2.686 [place] [phone] Ne bony AHUJA 020 [facility] 2021-10-09 2021-10-09 Outpatient R ANDRES [facility] [id number] Univers 15:00:00 15:53:41 ity [facility] 2021-10-09 2021-10-09 Office Andres [facility] 1.2.840.114 [id number] Univers 15:00:00 15:53:41 Visit SPECIALTY [id number] ity of CARE 4.2.7.2.686 [place] [phone] Ne bony AHUJA [address] [place] [address] 2021-10-09 2021-10-09 Outpatient R ANDRES [facility] [id number] Univers 15:00:00 15:53:41 ity [facility] 2021-10-09 2021-10-09 Office Andres [facility] 1.2.840.114 [id number] Univers 15:00:00 15:53:41 Visit SPECIALTY [id number] ity of CARE 4.2.7.2.686 [place] AT [phone] Ne bony [address] 2021-10-09 2021-10-09 Outpatient R ANDRES [facility] [id number] Univers 15:00:00 15:53:41 ity [facility] 2021-10-09 2021-10-09 Outpatient Todd CAMPOS [facility] [id number] Univers 15:00:00 15:53:41 ity [facility] 2021-10-08 2021-10-08 Outpatient Todd [facility] [id number] Univers 09:00:00 16:34:21 PAPITO negrete [facility] 2021-10-08 2021-10-08 Office JACKY De Leon [id number] Univers 09:00:00 16:34:21 Visit Papito [facility] 350.1.13.10 ity of CLINICS 4.2.7.2.[place] [phone] [address] 2021-10-08 2021-10-08 Outpatient Todd DE LEON JR [facility] [id number] Univers 09:00:00 16:34:21 PAPITO negrete [facility] 2021-10-08 2021-10-08 Outpatient Todd DE LEON JR [facility] [id number] Univers 09:00:00 16:34:21 PAPITO negrete [facility] 2021-10-08 2021-10-08 Outpatient R MOISES RUANO, [facility] [id number] Univers 09:00:00 09:00:00 PAPITO negrete [facility] 2021-09-24 2021-09-24 Office JACKY De Leon [id number] Univers 15:00:00 15:30:00 Visit Papito [facility] 350.1.13.10 ity of CLINICS 4.2.7.2.686 [place] [id number] [facility] 028 [place] 2021-09-24 2021-09-24 Outpatient R MOISES RUANO, [facility] [id number] Univers 15:00:00 15:00:00 PAPITO negrete [facility] 2021-09-24 2021-09-24 Letter Doctor EL 1.2.840.114 [id number] Univers 00:00:00 00:00:00 (Out) Unassigned, NANI 350.1.13.10 ity of [place] [facility] 4.2.7.2.686 [place] as [phone] [facility] 044 [place] 2021-09-24 2021-09-24 Orders Doctor EL 1.2.840.114 [id number] Univers 00:00:00 00:00:00 Only Unassigned, NANI 350.1.13.10 ity of [place] [facility] 4.2.7.2.686 [place] as [phone] [facility] 009 [place] 2021-03-12 2021-03-12 Orders Doctor EL 1.2.840.114 [id number] Univers 00:00:00 00:00:00 Only Unassigned, NANI 350.1.13.10 ity of [place] [facility] 4.2.7.2.686 [place] as [id number] [facility] 009 [place] 2021-02-13 2021-02-13 Outpatient R GUZMAN, [facility] [id number] Univers 09:00:00 09:00:00 INDY negrete [facility] 2020-10-01 2020-10-01 Drill Rig Operator Helper Renan, Guadalupe Lab Main [facility] 1.2.8 40.114 [id number] Univers 11:43:11 11:58:11 Visit Jackie Matthews 350.1.13.10 ity of [place] 4.2.[place].2.686 [place] Profess[place] [phone] [facility] 353 [facility] 2020-10-01 2020-10-01 Outpatient R BYRON [facility] [id number] Univers 08:00:00 08:00:00 JACKIE negrete [facility] 2020-10-01 2020-10-01 Orders Doctor EL 1.2.840.114 [id number] Univers 00:00:00 00:00:00 Only Unassigned, NANI 350.1.13.10 ity of [place] [facility] 4.2.7.2.686 [place] as [phone] [address] 2020-08-13 2020-08-13 [facility] 1.2.840.114 [id number] Univers 08:32:15 09:39:57 Visit Indy Vega 350.1.13.10 ity of [place] 4.2.7.2.686 [place] Profess[place] [phone] [facility] 204 [facility] 2020-08-13 2020-08-13 [facility] [id number] Univers 08:30:00 08:30:00 INDY negrete [facility] 2020-08-02 2020-08-02 Orders Doctor EL 1.2.840.114 [id number] Univers 00:00:00 00:00:00 Only Unassigned, NANI 350.1.13.10 ity of [place] [facility] 4.2.7.2.686 [place] as [phone] [address] 2020-07-30 2020-07-30 Office [facility] 1.2.840.114 [id number] Univers 15:31:39 16:11:03 Visit Indy V[place] 350.1.13.10 ity of [place] 4.2.7.2.686 [place] Profess[place] [phone] [facility] 204 [facility] 2020-07-30 2020-07-30 Out[facility] [id number] Univers 15:30:00 15:30:00 INDY negrete [facility] 2020-07-09 2020-07-09 Telephone Alicia EL 1.2.840.114 [id number] Univers 00:00:00 00:00:00 Radha NANI 350.1.13.10 it y of HOSPITAL 4.2.7.2.686 [place] as [phone] [facility] 007 [place] 2020-07-05 2020-07-[address] [facility] 1.2.840.114 [id number] Univers 13:59:49 14:57:15 Visit , Adc Surg Spec Procedure [place] 3 50.1.13.10 ity of [place] 4.2.7.2.686 [place] Profess[place] [phone] Ne dical nal 204 [facility] 2020-07-05 2020-07-05 [facility] [id number] Univers 14:00:00 14:00:00 RADHA negrete [facility] 2020-06-27 2020-06-27 Outpatient R BYRON [facility] [id number] Univers 12:00:00 12:00:00 JACKIE chulalauri [facility] 2020-06-27 2020-06-27 Drill Rig Operator Helper Guadalupe Urrutia Lab Main [facility] 1.2.8 40.114 [id number] Univers 11:39:02 11:54:02 Visit Jackie Matthews 350.1.13.10 ity of [place] 4.2.7.2.686 [place] [phone] Ne dical nal 353 [facility] 2020-06-27 2020-06-27 Orders Doctor EL 1.2.840.114 [id number] Univers 00:00:00 00:00:00 Only Unassigned, NANI 350.1.13.10 ity of [place] [facility] 4.2.7.2.686 [place] as [phone] [facility] 009 [place] 2020-06-13 2020-06-13 Telephone [facility] 1.2.840.114 [id number] Univers 00:00:00 00:00:00 Radha [facility] 350.1.13.10 it y of [place] 4.2.7.2.686 [place] - [phone] Med ical [facility] 204 [place] 2020-06-11 2020-06-11 Office Radha Vargas [facility] 1.2.840.114 [id number] Univers 13:29:35 15:29:41 Visit Rm, Adc Surg Spec Procedure [place] 3 50.1.13.10 ity of [place] 4.2.7.2.686 [place] [phone] Ne dical nal 204 [facility] 2020-06-11 2020-06-11 Outpatient R ALICIA [facility] [id number] [facility] 13:30:00 13:30:00 [facility] ity [facility] 2020-05-23 2020-05-23 Telephone [facility] [id number] [facility] 00:00:00 00:00:00 [place] V[place] 350.1.13.10 ity of [place] 4.2.7.2.686 [place] [phone] Ne dical nal 204 [facility] 2020-05-22 2020-05-22 Case [facility] 1.2.840.[id number] [place] [address] 00:00:00 00:00:00 Management [place] 350.1.13.10 ity of [place] 4.2.7.2.686 [place] [phone] Ne dical nal 204 [facility] 2020-05-22 2020-05-22 Telephone [facility] [id number] Univers 00:00:00 00:00:00 [place] 350.1.13.10 ity of [place] 4.2.7.2.686 [place] Profess[place] [phone] Ne dical nal 204 [facility] 2020-05-14 2020-05-14 Drill Rig Operator Helper 2, [facility] Lab [facility] 1.2.840.114 [id number] Univers 14:40:08 14:55:08 Visit GuzmanIndy 350.1.13.10 ity of [place] 4.2.7.2.686 [place] [phone] Ne dical nal 353 [facility] 2020-05-14 2020-05-14 Office [facility] 1.2.840.114 [id number] Univers 13:29:46 14:19:42 Visit Indy Vega 350.1.13.10 ity of [place] 4.2.7.2.686 [place] Profess[place] [phone] [facility] 204 [facility] 2020-05-14 2020-05-14 Out[facility] [id number] Univers 13:30:00 13:30:00 NIDY chulalauri [facility] 2020-04-16 2020-04-16 Office [facility] 1.2.840.114 [id number] [facility] 13:30:04 14:07:02 Visit Radha Vega 350.1.13.10 i ty of [place] 4.2.7.2.686 [place] Professio [phone] [address] 2020-04-16 2020-04-16 Outpatient R LUPISFORMERLY [facility] [id number] Univers 13:30:00 13:30:00 [facility] 2020-04-16 2020-04-16 Orders Doctor EL [id number] Univers 00:00:00 00:00:00 Only Unassigned, NANI [id number] ity of [place] [facility] [id number] Kike as [phone] [address] 2019-11-16 2019-11-16 Drill Rig Operator Helper Guadalupe Urrutia [facility] [id number] 08:46:07 09:01:07 Visit Lab Main [place] [id number] [place] [id number] Professio [phone] [address] 2019-11-16 2019-11-16 Drill Rig Operator Helper Guadalupe Urrutia Lab Main [facility] [id number] Univers 08:46:07 09:01:07 Visit Jackie Matthews [id number] [place] [id number] Profess[place] [phone] [address] 2019-11-16 2019-11-16 [facility] [id number] Univers 08:30:00 08:30:00 JACKIE negrete [facility] 2019-09-26 2019-09-27 Outpatient VANDANA [facility] [id number] [facility] 12:26:00 13:45:00 , DEAN Results This patient has no known results.
--- NOTE | 2022-11-11 15:30 | RAD REPORT ---
EXAM DESCRIPTION: CT - Head Brain Wo Cont - 11/11/2022 3:17 pm CLINICAL HISTORY: HEADACHE Headache, drowsiness COMPARISON: Head Brain W/Wo Con dated 10/30/2022; Soft Tissue Neck W/Contr dated 10/30/2022; Chest Abd omen Pelvis W Cont dated 08/27/2022 TECHNIQUE: All CT scans are performed using dose optimization technique as appropriate and may inclu de automated exposure control or mA/KV adjustment according to patient size. FINDINGS: There is a large area of intermediate diminished density with brain edema in the distribut ion of left posterior cerebral artery compatible with subacute infarct.Old infarct changes are seen r ight occipital region. There is no acute hemorrhage seen. Minimal ifin-yt-krbiy midline shift is likely present of 2 mm. 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 No hemorrh age seen.
[2022-11-11 15:52] LABS: Absolute Lymphocytes (CBC) 0.6 K/uL (0.7-4.9); MCV 71.9 fL (80-100); MPV 6.6 fL (7.6-11.3); RBC Red Blood Cell Count 4.59 M/uL (4.33-5.43)
[2022-11-11 16:02] LABS: Albumin 2.4 g/dL (3.4-5.0); Bilirubin Direct 0.3 mg/dL (0-0.2); Bilirubin Total 0.5 mg/dL (0.2-1.0); Magnesium 1.9 mg/dL (1.6-2.4); Potassium 3.8 mEq/L (3.5-5.1); Protein, Total 6.9 g/dL (6.4-8.2)
--- NOTE | 2022-11-11 16:03 | RAD REPORT ---
EXAM DESCRIPTION: RAD - Chest Single View - 11/11/2022 3:58 pm CLINICAL HISTORY: fall Chest pain. COMPARISON: <Comparisons> FINDINGS: Portable technique limits examination quality. The lungs are underinflated but grossly clear. The heart is normal in size. No displaced fractures. IMPRESSION: No acute intrathoracic process suspected.
[2022-11-11 16:07] LABS: Troponin High Sensitivity 1284.8 pg/mL (<58.9)
--- NOTE | 2022-11-11 16:19 | EDPHYS ---
Physician Documentation [facility] Name: Kenji Hunt Age: 82 yrs Sex: Male : 1940 Arrival Date: 11/11/2022 Time: 14:26 Bed 19 Private MD: ED Physician David Serrano HPI: 11/11 16:05 This 82 yrs old Male presents to ER via EMS with complaints of Altered mental ms3 status/fall. 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 Patient's last known normal was 4 PM yesterday. Patient only alert to name. EMS states patient's daughter came to patient's house and found patient on the floor. Historical: - Allergies: 15:00 No Known Allergies; ko1 - PMHx: 15:00 Cancer in situ of urinary bladder; History of urinary tract infection; skin cancer; ko1 - Immunization history:: Adult Immunizations unknown. - Social history:: Smoking status: Patient denies any tobacco usage or history of. ROS: 16:22 Unable to obtain ROS due to altered mental status. ms3 Exam: 16:22 Cardiovascular: Regular rate and rhythm with a normal S1 and S2. No gallops, murmurs, ms3 or rubs. Normal PMI, no JVD. No pulse deficits. Respiratory: Lungs have equal breath sounds bilaterally, clear to auscultation and percussion. No rales, rhonchi or wheezes noted. No increased work of breathing, no retractions or nasal flaring. Abdomen/GI: Soft, non-tender, with normal bowel sounds. No distension or tympany. No guarding or rebound. No evidence of tenderness throughout. 16:22 Constitutional: The patient appears alert, obviously ill, unkempt. 16:22 Head/face: Noted is Ulcerating wound left neck. 16:22 Neuro: Orientation: to person. Vital Signs: 14:30 BP 136 / 77; Pulse 87; Resp 18; Pulse Ox 99% ; ko1 14:56 BP 136 / 77; Pulse 88; Resp 18; Temp 98; Pulse Ox 97% ; Weight 77.11 kg; Height 5 ft. 8 ko1 in. ; 15:00 BP 145 / 75; Pulse 92; Resp 18; Pulse Ox 99% ; ko1 14:56 Body Mass Index 25.85 (77.11 kg, 172.72 cm) ko1 MDM: 14:56 Patient medically screened. ms3 16:20 Differential Diagnosis: CVA, electrolyte abnormality, intracranial bleed, volume ms3 depletion. Data reviewed: vital signs, nurses notes, lab test result(s), EKG, radiologic studies, and as a result, I will discharge patient. Consideration of Admission/Observation Escalation of care including admission/observation considered. Discussed admission with patient's daughter/power of research attorney and she states she signed hospice papers 2 hours prior to arrival and would like patient discharged back home to hospice.. Independent interpretation of the following test(s) in the Emergency Department EKG: See my EKG interpretation above cognos consultant: rate is 87 beats/min, Rhythm is normal sinus rhythm, regular, with no ectopy, Interpretation: normal rate, normal rhythm. Historians other than the Patient: EMS: [facility]. Counseling: I had a detailed discussion with the patient and/or guardian regarding: the historical points, exam findings, and any diagnostic results supporting the discharge/admit diagnosis, lab results, radiology results, the need for outpatient follow up, to return to the emergency department if symptoms worsen or persist or if there are any questions or concerns that arise at home. ED course: Discussed admission versus discharge to hospice with patient's daughter. Patient's daughter wishes for patient to be discharged home to hospice. Discussed subacute infarct on CT and elevated troponin with her. She states they do not wish further care or interventions. Patient to be discharged to hospice. Patient's daughter understands agrees with plan. All questions were answered. Return precautions discussed to include worsening conditions or any concerns.. 11/11 14:57 Order name: Basic Metabolic Panel; Complete Time: 16:09 ms3 11/11 14:57 Order name: CBC with Diff; Complete Time: 16:00 ms3 11/11 14:57 Order name: LFT's; Complete Time: 16:09 ms3 11/11 14:57 Order name: Magnesium; Complete Time: 16: ms3 11/11 14:57 Order name: Troponin HS; Complete Time: 16: ms3 11/11 15:02 Order name: CK; Complete Time: 16: ms3 11/11 14:57 Order name: XRAY Chest (1 view); Complete Time: 16:09 ms3 11/11 14:57 Order name: CT Head Brain wo Cont; Complete Time: 16:00 ms3 11/11 14:57 Order name: EKG; Complete Time: 14:57 ms3 11/11 14:57 Order name: Cardiac monitoring; Complete Time: 15:02 ms3 11/11 14:57 Order name: EKG - Nurse/Tech ms3 11/11 14:57 Order name: IV Saline Lock; Complete Time: 15:02 ms3 11/11 14:57 Order name: Labs collected and sent; Complete Time: 15:36 ms3 11/11 14:57 Order name: O2 Per Protocol; Complete Time: 15:02 ms3 11/11 14:57 Order name: O2 Sat Monitoring; Complete Time: 15:02 ms3 Administered Medications: No medications were administered Disposition: 16:24 Chart complete. ms3 Disposition Summary: 11/11/22 16:18 Discharge Ordered Location: Home ms3 Condition: Stable ms3 Diagnosis - Cerebellar stroke ms3 - Subsequent non-ST elevation (NSTEMI) myocardial infarction ms3 - Essential (primary) hypertension ms3 - Anemia, unspecified ms3 - Elevated WBC ms3 - Fall on same level, unspecified ms3 Followup: ms3 - With: Private Physician - When: 1 - 2 days - Reason: Recheck today's complaints Discharge Instructions: - Discharge Summary Sheet ms3 - Anemia ms3 - Hypertension, Adult ms3 - Heart Attack, Uukp-[id number] ms3 - Ischemic Stroke, [id number] ms3 Forms: - Medication Reconciliation Form ms3 - Thank You Letter ms3 - Antibiotic Education ms3 - Prescription Opioid Use ms3 Signatures: Dispatcher [employer] EDDavid Robles DO DO ms3 Danyelle Pereira, RN RN ko1
--- NOTE | 2022-11-11 16:19 | ER ---
[facility] Name[facility] Ken[facility] Age: 82 yrs Sex: Male : 1940 Arrival Date: 11/11/2022 Time: 14:26 Bed 19 Private MD: Diagnosis: Cerebellar stroke;Subsequent non-ST elevation (NSTEMI) myocardial infarction;Essential (primary) hypertension;Anemia, unspecified;Elevated WBC;Fall on same level, unspecified Presentation: 11/11 14:56 Chief complaint: EMS states: patient fell at home, last seen normal at 4pm yesterday. ko1 Coronavirus screen: At this time, the client does not indicate any symptoms associated with coronavirus-19. Ebola Screen: No symptoms or risks identified at this time. Initial Sepsis Screen: Does the patient meet any 2 criteria? Altered Mental Status. Does the patient have a suspected source of infection? No. Patient's initial sepsis screen is negative. Risk Assessment: Do you want to hurt yourself or someone else? Patient reports no desire to harm self or others. Onset of symptoms is unknown. 14:56 Method Of Arrival: EMS: [facility] ko1 14:56 Acuity: ZOZIE 3 ko1 Triage Assessment: 15:00 General: Appears distressed, uncomfortable, unkempt, Behavior is anxious, restless. ko1 Pain: Denies pain. Historical: - Allergies: 15:00 No Known Allergies; ko1 - PMHx: 15:00 Cancer in situ of urinary bladder; History of urinary tract infection; skin cancer; ko1 - Immunization history:: Adult Immunizations unknown. - Social history:: Smoking status: Patient denies any tobacco usage or history of. Screenin:00 [facility] ED Fall Risk Assessment (Adult) History of falling in the last 3 months, ko1 including since admission Yes- single mechanical fall (1 pt) Confusion or Disorientation Yes (5 pts) Intoxicated or Sedated No (0 pts) Impaired Gait Yes (1 pt) Mobility Assist Device Used Yes (1 pt) Altered Elimination Yes (1 pt) Score/Fall Risk Level 3 or more points = High Risk Oriented to surroundings, Maintained a safe environment, Educated pt \T\ family on fall prevention, incl call for assistance when getting out of bed, Assessed \T\ reinforced patient's understanding of fall precautions, Provided non-skid footwear, Hourly rounding (assess needs \T\ fall precautionary measures) done, Used ambulatory aids as needed (educated on \T\ assisted with), Implemented a Fall Risk Plan of Care, Remained w/in arm's length of patient and in sight while toileting, Offered frequent toileting (1:1 observation), Remained with patient while ambulating, Utilized family, sitter, or virtual online health and fitness coach as indicated. Abuse screen: Denies threats or abuse. Denies injuries from another. Nutritional screening: No deficits noted. Tuberculosis screening: No symptoms or risk factors identified. Assessment: 15:00 General: Appears distressed, uncomfortable, unkempt, Behavior is agitated, anxious. ko1 Pain: Denies pain. Neuro: Ta Agitation-Sedation Scale (RASS): +2 Agitated Level of Consciousness is awake, alert, confused, Oriented to person. Cardiovascular: No deficits noted. Respiratory: No deficits noted. GI: No deficits noted. : Woody in place to gravity drainage Urine is cloudy. EENT: No deficits noted. 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 Musculoskeletal: No deficits noted. Vital Signs: 14:30 BP 136 / 77; Pulse 87; Resp 18; Pulse Ox 99% ; ko1 14:56 BP 136 / 77; Pulse 88; Resp 18; Temp 98; Pulse Ox 97% ; Weight 77.11 kg; Height 5 ft. 8 ko1 in. ; 15:00 BP 145 / 75; Pulse 92; Resp 18; Pulse Ox 99% ; ko1 14:56 Body Mass Index 25.85 (77.11 kg, 172.72 cm) ko1 ED Course: 14:55 Patient arrived in ED. ko1 14:56 Danyelle Pereira, SASHA is Primary Nurse. ko1 14:56 David Serrano DO is Attending Physician. ms3 15:00 Triage completed. ko1 15:00 Arm band placed on right wrist. Patient placed in an exam room, on a stretcher, Patient ko1 notified of wait time. 15:00 Patient has correct armband on for positive identification. Fall risk band placed. Bed ko1 in low position. Side rails up X2. Client placed on continuous cardiac and pulse oximetry monitoring. NIBP monitoring applied. account classification clerk on. Warm blanket given. 15:00 No provider procedures requiring assistance completed. Maintain EMS IV. Dressing ko1 intact. Good blood return noted. Site clean \T\ dry. Gauge \T\ site: 20G right AC. IV is patent, is intact, with fluids infusing freely, with good blood return, Flushed right antecubital with 5 ml normal saline. 15:18 CT Head Brain wo Cont In Process Unspecified. EDMS 15:36 CK Sent. ko1 15:36 Basic Metabolic Panel Sent. ko1 15:36 CBC with Diff Sent. ko1 15:36 LFT's Sent. ko1 15:36 Magnesium Sent. ko1 15:36 Troponin HS Sent. ko1 15:59 XRAY Chest (1 view) In Process Unspecified. EDMS 18:03 IV discontinued, intact, bleeding controlled, No redness/swelling at site. Pressure ko1 dressing applied. Administered Medications: No medications were administered Medication: 18:01 VIS not applicable for this client. ko1 Output: 18:01 Urine: 700ml (Woody); Total: 700ml. ko1 Outcome: 16:18 Discharge ordered by . ms3 18:04 Patient left the ED. kj1 Signatures: Dispatcher [employer] EDMS Lauren Jiang kj1 David Serrano DO DO ms3 Danyelle Pereira, RN RN ko1
[2022-11-11 19:00] VITALS: TEMP 98
[2022-11-11 19:02] VITALS: BP 145/75; O2SAT 99
--- NOTE | 2022-11-12 16:47 | EKG ---
Test Date: 2022-11-11 Test Time: 16:01:35 Beauty Consultant: ALYSON MEASUREMENT RESULTS: Intervals: Rate: 92 UT: 232 QRSD: 122 QT: 402 QTc: 497 [place]: P: 47 UT: 232 QRS: -77 T: 34 INTERPRETIVE STATEMENTS: Sinus rhythm with 1st degree AV block Left axis deviation Right bundle branch block Anterolateral infarct, age undetermined Abnormal ECG Compared to ECG 06/20/2015 13:32:25 Myocardial infarct finding now present Electronically Signed On 11-12-22 16:46:20 CDT by Broderick Ramirez
== END 2022-11-11 18:04 | disposition home or self-care (01) ==
LOC: ER 14:26
DX: I63.9 Cerebral infarction, unspecified (principal); I22.2 Subsequent non-ST elevation (NSTEMI) myocardial infarction; I10 Essential (primary) hypertension; D64.9 Anemia, unspecified; D72.829 Elevated white blood cell count, unspecified; D09.0 Carcinoma in situ of bladder; W18.30XA Fall on same level, unspecified, initial encounter
CPT/HCPCS: 36415; 70450; 71045; 80048; 80076; 82550; 83735; 84484; 85025; 93005; 99284